=== PATIENT | female | born 1960 | race Caucasian/White ===

== ENCOUNTER 2017-04-18 00:59 | Observation (INO) | payer BC ==
[2017-04-18] MEDS ORDERED: Ketorolac 30 MG/ML SDV IVPUSH ONE (01:17)
[2017-04-18] MEDS ORDERED: Ondansetron 4 MG/2 ML SDV IVPUSH STA (01:19)
--- NOTE | 2017-04-18 01:26 | EDM.PDOC ---
ED HPI GENERAL MEDICAL PROBLEM - General Chief Complaint: Abdominal Pain Stated Complaint: abd pain, headache Time Seen by Provider: 04/18/17 01:00 Source of Information: Reports: Patient History Limitations: Reports: No Limitations - History of Present Illness INITIAL COMMENTS - FREE TEXT/NARRATIVE: Patient is a 56 year old female who presents to the ER with complaints of abdominal pain and a migraine headache. She reports that she has been experiencing abdominal pain for the past few months, with alternating constipation and diarrhea. She reports she had an abdomen/pelvis CT scan today after being seen in the clinic last week. She rates her abdominal pain a 7/10. Does report she feels nauseated. Reports she took zofran at home around 1700. Has not tried anything else at home prior to ER presentation. Does report she had a negative ColoGuard last year. She reports her last bowel movement to have been this evening and it was loose. Denies any blood in her stool or black stools. Denies any ETOH use. Denies any vomiting. Additionally, she complains of a frontal headache. She reports a history of migraines and reports this is similar to headaches in the past. Denies any confusion, dizziness, lightheadedness, LOC, numbness, tingling, weakness. Denies any fever or chills. She reports she came to the ER because she just couldn't get comfortable at home due to the pain. She reports she did not try any home pain medications prior to coming in to ER. Onset: Today Onset Date: 04/18/17 Onset Time: 16:00 Duration: Constant Location: Reports: Head (throbbing migraine, frontal, typical features of previous migraine), Abdomen (umbilical/epigastric) Quality: Reports: Ache, Throbbing Improves with: Reports: None Worsens with: Reports: None Associated Symptoms: Reports: Headaches, Loss of Appetite, Nausea/Vomiting. Denies: Confusion, Chest Pain, Cough, cough w sputum, Diaphoresis, Fever/Chills , Malaise, Rash, Seizure, Shortness of Breath, Syncope, Weakness Treatments [employer]: Reports: Other Medication(s) (zofran at 1700). Denies: Home Treatments Abdominal Pain Score (Numeric/FACES): 7 Headache Pain Score (Numeric/FACES): 10 - Related Data Allergies Allergy/AdvReac Type Severity Reaction Status Date / Time acetaminophen [From Percocet] AdvReac Dizziness Verified 04/18/17 08:42 oxycodone HCl [From Percocet] AdvReac Dizziness Verified 04/18/17 08:42 Home Meds: Home Meds Zolpidem [Ambien] 10 mg PO BEDTIME 01/07/14 [History] Ondansetron [Zofran] 4 - 8 mg PO Q6H PRN 04/23/14 [History] Cyclobenzaprine [Flexeril] 10 mg PO TID PRN 11/06/14 [History] Past Medical History Other HEENT History: [place] Cardiovascular History: Reports: Hypertension Neurological History: Reports: Migraines - Past Surgical History Female Surgical History: Reports: Hysterectomy, Tubal Ligation Social & Family History - Family History Family Medical History: Noncontributory - Tobacco Use Smoking Status *Q: Former Smoker Years of Tobacco use: 1 - Alcohol Use Days Per Week of Alcohol Use: 0 - Recreational Drug Use Recreational Drug Use: No ED ROS GENERAL - Review of Systems Review Of Systems: See Below Constitutional: Denies: Fever, Chills, Weakness, Fatigue Respiratory: Reports: No Symptoms. Denies: Shortness of Breath, Cough Cardiovascular: Reports: No Symptoms. Denies: Chest Pain GI/Abdominal: Reports: Abdominal Pain (umbilical/epigastric), Diarrhea, Decreased Appetite, Flatus, Nausea. Denies: Black Stool, Bloody Stool, Constipation, Distension, Hematemesis, Hematochezia, Melena, Vomiting : Reports: No Symptoms Musculoskeletal: Reports: No Symptoms Skin: Reports: No Symptoms Neurological: Reports: Headache (frontal, migraine with patients typical migraine features). Denies: Confusion, Dizziness, Numbness, Paresthesia, Pre- Existing Deficit, Seizure, Syncope, Tingling, Tremors, Trouble Speaking, Difficulty Walking, Weakness, Change in Speech, Gait Disturbance ED EXAM, GI/ABD - Physical Exam Exam: See Below Exam Limited By: No Limitations General Appearance: Alert, WD/WN, No Apparent Distress Eyes: Bilateral: Normal Appearance, EOMI Head: Atraumatic, Normocephalic Neck: Normal Inspection, Supple, Non-Tender, Full Range of Motion Respiratory/Chest: No Respiratory Distress, Lungs Clear, Normal Breath Sounds, No Accessory Muscle Use, Chest Non-Tender Cardiovascular: Normal Peripheral Pulses, Regular Rate, Rhythm, No Edema, No Gallop, No JVD, No Murmur, No Rub GI/Abdominal Exam: Normal Bowel Sounds, Soft, No Organomegaly, No Distention, No Abnormal Bruit, No Mass, Pelvis Stable, Tender (umbilical & epigastric region ). No: Distended, Guarding, Rigid, Rebound, Abnormal Bowel Sounds, Hepatomegaly , Splenomegaly Back Exam: Normal Inspection, Full Range of Motion. No: CVA Tenderness (L), CVA Tenderness (R) Extremities: Normal Inspection, Normal Range of Motion, Non-Tender, Normal Capillary Refill, No Pedal Edema Neurological: Alert, Oriented, CN II-XII Intact, Normal Cognition, Normal Gait, No Motor/Sensory Deficits. No: Confused Psychiatric: Normal Affect, Normal Mood Skin Exam: Warm, Dry, Intact, Normal Color, No Rash Course - Vital Signs Last Recorded V/S: Last Vital Signs Temp 98.3 F 04/19/17 07:47 Pulse 74 04/19/17 07:47 Resp 19 04/19/17 07:47 BP 148/85 H 04/19/17 07:47 Pulse Ox 97 04/19/17 07:47 - Orders/Labs/Meds Labs: Laboratory Tests 04/18/17 04/18/17 04/18/17 Range/Units 01:15 01:15 01:15 WBC 9.4 (5.0-10.0) 10^3/uL RBC 4.97 (4.00-5.50) 10^6/uL Hgb 14.2 (12.0-16.0) g/dL Hct 42.2 (37.0-47.0) % MCV 84.9 (82.0-94.0) fL MCH 28.6 (27.0-32.0) pg MCHC 33.6 (33.0-38.0) g/dL RDW Coeff of Myra 13.0 (11.0-15.0) % Plt Count 238 (150-400) 10^3/uL Add Manual Diff Yes Neutrophils % (Manual) 84 (35-85) % Band Neutrophils % 8 H (0-5) % Lymphocytes % (Manual) 4 L (21-55) % Monocytes % (Manual) 3 (2-12) % Eosinophils % (Manual) 1 (0-5) % Absolute Neutrophils 8.65 H (1.80-7.00) 10^3/uL Lymphocytes # (Manual) 0.38 L (1.00-4.80) 10^3/uL Monocytes # (Manual) 0.28 (0.00-0.80) 10^3/uL Eosinophils # (Manual) 0.09 (0.00-0.45) 10^3/uL Sodium 140 (136-145) mEq/L Potassium 3.6 (3.5-5.0) mEq/L Chloride 104 (98-106) mEq/L Carbon Dioxide 26 (21-32) mmol/L BUN 12 (7-18) mg/dL Creatinine 1.0 (0.6-1.0) mg/dL Est Cr Clr Drug Dosing 50.86 mL/min Estimated GFR (MDRD) 58 L (>=60) mL/min Glucose 140 H (75-99) mg/dL Calcium 9.2 (8.4-10.1) mg/dL Total Bilirubin 1.0 (0.0-1.0) mg/dL AST 607 H* (15-37) U/L ALT 574 H* (12-78) U/L Alkaline Phosphatase 158 H (46-116) U/L C-Reactive Protein 4.5 H (0.2-0.8) mg/dL Total Protein 7.5 (6.4-8.2) g/dL Albumin 3.6 (3.4-5.0) g/dL Amylase 18 L (25-115) U/L Urine Color (YELLOW) Urine Appearance (CLEAR) Urine pH (4.5-8.0) Ur Specific [place] (1.003-1.020) Urine Protein (NEGATIVE) mg/dL Urine Glucose (UA) (NEGATIVE) mg/dL Urine Ketones (NEGATIVE) mg/dL Urine Occult Blood (NEGATIVE) Urine Nitrite (NEGATIVE) Urine Bilirubin (NEGATIVE) Urine Urobilinogen (0.2-1.0) EU/dL Ur Leukocyte Esterase (NEGATIVE) Urine RBC (0-5) /HPF Urine WBC (0-5) /HPF Ur Squamous Epith Cells (NOT SEEN) /HPF Urine Bacteria (NOT SEEN) /HPF Urine Mucus (NOT SEEN) /HPF 04/18/17 Range/Units 01:15 WBC (5.0-10.0) 10^3/uL RBC (4.00-5.50) 10^6/uL Hgb (12.0-16.0) g/dL Hct (37.0-47.0) % MCV (82.0-94.0) fL MCH (27.0-32.0) pg MCHC (33.0-38.0) g/dL RDW Coeff of Myra (11.0-15.0) % Plt Count (150-400) 10^3/uL Add Manual Diff Neutrophils % (Manual) (35-85) % Band Neutrophils % (0-5) % Lymphocytes % (Manual) (21-55) % Monocytes % (Manual) (2-12) % Eosinophils % (Manual) (0-5) % Absolute Neutrophils (1.80-7.00) 10^3/uL Lymphocytes # (Manual) (1.00-4.80) 10^3/uL Monocytes # (Manual) (0.00-0.80) 10^3/uL Eosinophils # (Manual) (0.00-0.45) 10^3/uL Sodium (136-145) mEq/L Potassium (3.5-5.0) mEq/L Chloride (98-106) mEq/L Carbon Dioxide (21-32) mmol/L BUN (7-18) mg/dL Creatinine (0.6-1.0) mg/dL Est Cr Clr Drug Dosing mL/min Estimated GFR (MDRD) (>=60) mL/min Glucose (75-99) mg/dL Calcium (8.4-10.1) mg/dL Total Bilirubin (0.0-1.0) mg/dL AST (15-37) U/L ALT (12-78) U/L Alkaline Phosphatase (46-116) U/L C-Reactive Protein (0.2-0.8) mg/dL Total Protein (6.4-8.2) g/dL Albumin (3.4-5.0) g/dL Amylase (25-115) U/L Urine Color Yellow (YELLOW) Urine Appearance Slightly cloudy (CLEAR) Urine pH 5.5 (4.5-8.0) Ur Specific [place] 1.015 (1.003-1.020) Urine Protein Trace H (NEGATIVE) mg/dL Urine Glucose (UA) Negative (NEGATIVE) mg/dL Urine Ketones 15 H (NEGATIVE) mg/dL Urine Occult Blood Trace-intact H (NEGATIVE) Urine Nitrite Negative (NEGATIVE) Urine Bilirubin Small H (NEGATIVE) Urine Urobilinogen 0.2 (0.2-1.0) EU/dL Ur Leukocyte Esterase Negative (NEGATIVE) Urine RBC 5-10 H (0-5) /HPF Urine WBC Not seen (0-5) /HPF Ur Squamous Epith Cells Few H (NOT SEEN) /HPF Urine Bacteria Few H (NOT SEEN) /HPF Urine Mucus Few H (NOT SEEN) /HPF Meds: Medications Discontinued Medications Generic Name Dose Route Start Last Admin Trade Name Freq PRN Reason Stop Dose Admin Cyclobenzaprine HCl 10 mg 04/18/17 02:38 Flexeril PO TID PRN Other Docusate Sodium 100 mg 04/18/17 02:38 Colace PO BID PRN Constipation Fentanyl 25 mcg 04/18/17 12:13 Sublimaze IVPUSH Q2H PRN Pain (severe 7-10) Hydromorphone HCl 0.5 mg 04/18/17 02:38 04/18/17 06:27 Dilaudid IVPUSH 0.5 mg Q2H PRN Administration Pain (severe 7-10) Sodium Chloride 500 mls @ 999 mls/hr 04/18/17 01:30 04/18/17 01:43 Normal Saline IV 999 mls/hr .BOLUS ALEE Administration Sodium Chloride 1,000 mls @ 75 mls/hr 04/18/17 02:38 04/18/17 18:17 Normal Saline IV 75 mls/hr ASDIRECTED ALEE Administration Promethazine HCl 6.25 mg/ 50.25 mls @ 100 mls/hr 04/18/17 02:38 04/18/17 08: 27 Sodium Chloride IV 100 mls/hr Q6H PRN Administration Nausea/Vomiting Levofloxacin/Dextrose 500 mg/ 100 mls @ 100 mls/hr 04/18/17 03:00 04/18/17 03 :03 Premix IV 100 mls/hr Q24H ALEE Administration Metronidazole 500 mg/ Premix 100 mls @ 100 mls/hr 04/18/17 03:00 04/18/17 03: 00 IV 100 mls/hr Q8H ALEE Administration Metronidazole 500 mg/ Premix 100 mls @ 100 mls/hr 04/18/17 16:00 IV Q8H ALEE Levofloxacin/Dextrose 500 mg/ 100 mls @ 100 mls/hr 04/19/17 09:00 Premix IV Q24H ALEE Ketorolac Tromethamine 30 mg 04/18/17 01:17 04/18/17 01:42 Toradol IVPUSH 04/18/17 01:18 30 mg ONETIME ONE Administration Ondansetron HCl 4 mg 04/18/17 01:19 04/18/17 01:43 Zofran IVPUSH 04/18/17 01:20 4 mg STAT STA Administration Ondansetron HCl Confirm 04/18/17 01:27 04/18/17 01:47 Zofran Administered 04/18/17 01:28 Not Given Dose 4 mg .ROUTE .STK-MED ONE Oxycodone HCl 5 mg 04/18/17 02:38 04/19/17 07:47 Oxycodone PO 5 mg Q4H PRN Administration Pain Pantoprazole Sodium 40 mg 04/18/17 08:00 04/19/17 07:40 Protonix Iv IVPUSH 40 mg Q24H ALEE Administration Zolpidem Tartrate 10 mg 04/18/17 20:00 04/18/17 19:50 Ambien PO 10 mg BEDTIME ALEE Administration - Re-Assessments/Exams Free Text/Narrative Re-Assessment/Exam: 04/18/17 02:04 Discussed lab results with patient. Liver enzymes critically elevated, ALT 574 & AST 607. Liver enzymes were not elevated on lab work done 04/10/2017. CT of abdomen done around 0930 yesterday morning suggest fatty liver disease. Patient has had a cholecystectomy. CT did not show any common bile duct dilation. Was negative for any other acute findings. Headache improved with medications. I will admit this patient to observation under Dr. Shah to recheck labs in morning, given band neutrophils, elevated CRP, and acutely elevated liver enzymes. No obvious hepatotoxic medications on patient's med list. Will start IV antibiotics Levaquin and Flagyl, as well as IVF. Will recheck labs in am and discuss case with Dr. Shah regarding further workup of elevated liver enzymes. Departure - Departure Time of Disposition: 02:09 Disposition: Refer to Observation Clinical Impression: Elevated liver enzymes, Epigastric abdominal pain of unknown etiology Migraine Qualifiers: Migraine type: without aura Status migrainosus presence: without status migrainosus Intractability: not intractable Qualified Code(s): G43.009 - Migraine without aura, not intractable, without status migrainosus - Discharge Information - Problem List & Annotations (1) Elevated liver enzymes SNOMED Code(s): 722304464 Code(s): R74.8 - ABNORMAL LEVELS OF OTHER SERUM ENZYMES Status: Acute Priority: High (2) Epigastric abdominal pain of unknown etiology SNOMED Code(s): 715285771 Code(s): R10.13 - EPIGASTRIC PAIN Status: Acute (3) Migraine SNOMED Code(s): 09134419 Code(s): G43.909 - MIGRAINE, UNSP, NOT INTRACTABLE, WITHOUT STATUS MIGRAINOSUS Status: Acute Qualifiers: Migraine type: without aura Status migrainosus presence: without status migrainosus Intractability: not intractable Qualified Code(s): G43.009 - Migraine without aura, not intractable, without status migrainosus (4) Abnormal neutrophil count SNOMED Code(s): 337008911 Code(s): R79.9 - ABNORMAL FINDING OF BLOOD CHEMISTRY, UNSPECIFIED Status: Acute - Problem List Review Problem List Initiated/Reviewed/Updated: Yes - Assessment/Plan Admission H&P: Please use this note as an admission H&P
[2017-04-18] MEDS ORDERED: Ondansetron 4 MG/2 ML SDV ONE (01:27)
[2017-04-18] MEDS ORDERED: Sodium Chloride 0.9% 500 ML IV SCH (01:30)
[2017-04-18] MEDS ORDERED: Docusate Sodium 100 MG Cap PO PRN (02:38)
[2017-04-18] MEDS ORDERED: HYDROmorphone 1 MG/ML Syringe IVPUSH PRN (02:38)
[2017-04-18] MEDS ORDERED: Promethazine 6.25 MG in Sodium Chloride 0.9% 50 ML IV PRN (02:38)
[2017-04-18] MEDS ORDERED: Cyclobenzaprine 10 MG Tab PO PRN (02:38)
[2017-04-18] MEDS: Sodium Chloride 0.9% 1,000 ML IV SCH ×2 (03:00→18:17)
[2017-04-18] MEDS ORDERED: Levofloxacin/Dextrose 5%-Water 500 MG in Premix Bag 1 BAG IV SCH (03:00)
[2017-04-18] MEDS ORDERED: metroNIDAZOLE/Normal Saline 500 MG in Premix Bag 1 BAG IV SCH ×2 (03:00→16:00)
[2017-04-18 07:33] LABS: CHLORIDE,CL 106 mEq/L (98-106); SODIUM,NA 141 mEq/L (136-145)
[2017-04-18] MEDS: Pantoprazole 40 MG Vial IVPUSH SCH (11:48)
[2017-04-18] MEDS ORDERED: fentaNYL 100 MCG/2 ML SDV IVPUSH PRN (12:13)
--- NOTE | 2017-04-18 12:35 | PN ---
DATE: 04/18/2017 S: Mrs. Stover is a 56-year-old female with a history of some chronic abdominal pain. She presented to the emergency room with about a 7-day history of abdominal discomfort, some alternating episodes of diarrhea, constipation, and nausea. Workup surprisingly showed an acute hepatitis with marked elevation of her AST and ALT. She had minimal elevation of her alkaline phosphatase to 138 and her bilirubin was normal. Since she has been admitted, she has been afebrile. Her vitals have been fine. She clinically looks well. She does not complain of significant pain at this time. O: HEENT: Grossly benign. No Raghav-Jo Ann rings. NECK: Supple. LUNGS: Clear. CARDIAC: Tones are regular. ABDOMEN: actually quite soft. Deep palpation in the right upper quadrant and midepigastrium really do not give her much discomfort. She certainly has no guarding, rebound, rigidity, or obvious mass. Good bowel sounds are noted. EXTREMITIES: Without edema. ASSESSMENT: ACUTE HEPATITIS. P: We will get a hepatitis panel on her. I will get serum antibodies for autoimmune hepatitis and biliary cholangitis. We will get an anti-smooth muscle antibody, ALEJA, and antimitochondrial antibody as well, and she will be scheduled for right upper quadrant ultrasound. For now, continue IV fluids, pain control, and we will start her on IV Protonix. KONG/RUSH /[id number]
[2017-04-18] MEDS: oxyCODONE 5 MG Tab PO PRN ×2 (15:34→19:52)
[2017-04-18] MEDS ORDERED: Zolpidem 5 MG Tab PO SCH (20:00)
[2017-04-19] MEDS: Pantoprazole 40 MG Vial IVPUSH SCH (07:40)
[2017-04-19] MEDS: oxyCODONE 5 MG Tab PO PRN (07:47)
[2017-04-19 07:48] VITALS: BP 148/85
--- NOTE | 2017-04-19 08:33 | PCM.SN ---
- Free Text/Narrative Note: There have been no labs ordered for today. I have ordered the labs and will patient after lab results.
[2017-04-19 08:59] LABS: CHLORIDE,CL 107 mEq/L (98-106); SODIUM,NA 142 mEq/L (136-145)
[2017-04-19] MEDS ORDERED: Levofloxacin/Dextrose 5%-Water 500 MG in Premix Bag 1 BAG IV SCH (09:00)
--- NOTE | 2017-04-19 09:07 | PCM.DCSUM1 ---
Discharge Summary - Hospital Course HPI Initial Comments: This patient was admitted to the hospital from the ER for abdominal pain and elevated liver enzymes. The patient reports that today her abdominal pain is much improved. She reports that she has been able to eat and drink without difficulty since last night. Today, when I see the patient, she is in the bed eating breakfast without any trouble. Patient reports that she is ready to go home today. The patient is alert and oriented. She does not appear to be in any acute distress. Patient denies otero, dizziness, n, v, d, f, abd pain, urinary/ bowel changes. Yesterday her AST was 394, today is 152. Yesterday her ALT was 518, today it is 398. Will discharge. - Discharge Data Discharge Date: 04/19/17 Discharge Disposition: Home, Self-Care 01 Condition: Good - Patient Summary/Data Labs Pending at D/C: Hepatitis Panel. Send out. Recommended Follow-up Testing/Procedures: Followup with your primary care provider on Friday or Friday. - Patient Instructions Diet: Usual Diet as Tolerated (If tolerating well. If not, clear liquid diet and advance as tolerated. ) Activity: As Tolerated Showering/Bathing: September Shower Notify Provider of: Fever, Increased Pain, Nausea and/or Vomiting - Discharge Plan Home Medications: Home Meds Zolpidem [Ambien] 10 mg PO BEDTIME 01/07/14 [History] Ondansetron [Zofran] 4 - 8 mg PO Q6H PRN 04/23/14 [History] Cyclobenzaprine [Flexeril] 10 mg PO TID PRN 11/06/14 [History] Patient Handouts: Liver Function Tests, Hepatomegaly, [id number] Forms: ED Department Discharge Referrals: Collin Shen PA-C [Family Provider] - - Discharge Summary/Plan Comment DC Time >30 min.: No Discharge Summary/Plan Comment: Followup with your primary care provider Return to the ER for worsening of condition or any emergent concerns Diet as tolerated - General Info Date of Service: 04/19/17 Functional Status: Reports: Pain Controlled, Tolerating Diet - Review of Systems General: Reports: No Symptoms HEENT: Reports: No Symptoms Pulmonary: Reports: No Symptoms Cardiovascular: Reports: No Symptoms Gastrointestinal: Reports: Abdominal Pain (mild, but significantly improved. ). Denies: Diarrhea, Nausea, Vomiting Genitourinary: Reports: No Symptoms Musculoskeletal: Reports: No Symptoms Skin: Reports: No Symptoms Neurological: Reports: No Symptoms Psychiatric: Reports: No Symptoms - Patient Data Vitals - Most Recent: Last Vital Signs Temp 98.3 F 04/19/17 07:47 Pulse 74 04/19/17 07:47 Resp 19 04/19/17 07:47 BP 148/85 H 04/19/17 07:47 Pulse Ox 97 04/19/17 07:47 Weight - Most Recent: 201 lb 6.4 oz I&O - Last 24 hours: Intake & Output 04/18/17 04/19/17 04/19/17 22:59 06:59 14:59 Intake Total 1000 Balance 1000 Lab Results - Last 24 hrs: Laboratory Results - last 24 hr 04/19/17 Range/Units 08:35 WBC 4.8 L (5.0-10.0) 10^3/uL RBC 4.71 (4.00-5.50) 10^6/uL Hgb 13.5 (12.0-16.0) g/dL Hct 40.5 (37.0-47.0) % MCV 86.0 (82.0-94.0) fL MCH 28.7 (27.0-32.0) pg MCHC 33.3 (33.0-38.0) g/dL RDW Coeff of Myra 13.0 (11.0-15.0) % Plt Count 201 (150-400) 10^3/uL Neut % (Auto) 59.7 (35-85) % Lymph % (Auto) 26.5 (10-55) % [place] % (Auto) 6.3 (0-16) % Eos % (Auto) 6.9 H (0-5) % Baso % (Auto) 0.6 (0-3) % Neut # (Auto) 2.84 (1.80-7.00) 10^3/uL Lymph # (Auto) 1.26 (1.00-4.80) 10^3/uL [place] # (Auto) 0.30 (0.00-0.80) 10^3/uL Eos # (Auto) 0.33 (0.00-0.45) 10^3/uL Baso # (Auto) 0.03 10^3/uL Med Orders - Current: Current Medications Cyclobenzaprine HCl (Flexeril) 10 mg PO TID PRN PRN Reason: Other Docusate Sodium (Colace) 100 mg PO BID PRN PRN Reason: Constipation Fentanyl (Sublimaze) 25 mcg IVPUSH Q2H PRN PRN Reason: Pain (severe 7-10) Sodium Chloride (Normal Saline) 1,000 mls @ 75 mls/hr IV ASDIRECTED [facility] Last Admin: 04/18/17 18:17 Dose: 75 mls/hr Promethazine HCl 6.25 mg/ (Sodium Chloride) 50.25 mls @ 100 mls/hr IV Q6H PRN PRN Reason: Nausea/Vomiting Last Admin: 04/18/17 08:27 Dose: 100 mls/hr Oxycodone HCl (Oxycodone) 5 mg PO Q4H PRN PRN Reason: Pain Last Admin: 04/19/17 07:47 Dose: 5 mg Pantoprazole Sodium (Protonix Iv) 40 mg IVPUSH Q24H [facility] Last Admin: 04/19/17 07:40 Dose: 40 mg Zolpidem Tartrate (Ambien) 10 mg PO BEDTIME [facility] Last Admin: 04/18/17 19:50 Dose: 10 mg Discontinued Medications Hydromorphone HCl (Dilaudid) 0.5 mg IVPUSH Q2H PRN PRN Reason: Pain (severe 7-10) Last Admin: 04/18/17 06:27 Dose: 0.5 mg Sodium Chloride (Normal Saline) 500 mls @ 999 mls/hr IV .BOLUS [facility] Last Admin: 04/18/17 01:43 Dose: 999 mls/hr Levofloxacin/Dextrose 500 mg/ (Premix) 100 mls @ 100 mls/hr IV Q24H [facility] Last Admin: 04/18/17 03:03 Dose: 100 mls/hr Metronidazole 500 mg/ Premix 100 mls @ 100 mls/hr IV Q8H [facility] Last Admin: 04/18/17 03:00 Dose: 100 mls/hr Metronidazole 500 mg/ Premix 100 mls @ 100 mls/hr IV Q8H [facility] Levofloxacin/Dextrose 500 mg/ (Premix) 100 mls @ 100 mls/hr IV Q24H [facility] Ketorolac Tromethamine (Toradol) 30 mg IVPUSH ONETIME ONE Stop: 04/18/17 01:18 Last Admin: 04/18/17 01:42 Dose: 30 mg Ondansetron HCl (Zofran) 4 mg IVPUSH STAT STA Stop: 04/18/17 01:20 Last Admin: 04/18/17 01:43 Dose: 4 mg Ondansetron HCl (Zofran) Confirm Administered Dose 4 mg .ROUTE .STK-MED ONE Stop: 04/18/17 01:28 Last Admin: 04/18/17 01:47 Dose: Not Given - Exam General: Reports: Alert, Oriented, Cooperative, No Acute Distress Lungs: Reports: Clear to Auscultation, Normal Respiratory Effort Cardiovascular: Reports: Regular Rate, Regular Rhythm, No Murmurs GI/Abdominal Exam: Normal Bowel Sounds, Soft, Non-Tender, No Organomegaly (not felt on exam. ), No Distention, No Abnormal Bruit, No Mass, Pelvis Stable Back Exam: Reports: Normal Inspection, Full Range of Motion. Denies: CVA Tenderness (L), CVA Tenderness (R) Extremities: Normal Inspection, Normal Range of Motion, Non-Tender, No Pedal Edema, Normal Capillary Refill Skin: Reports: Warm, Dry, Intact Neurological: Reports: No New Focal Deficit Psy/Mental Status: Reports: Alert, Normal Affect, Normal Mood *Q Meaningful Use (DIS) - VTE *Q VTE Criteria *Q: - Stroke *Q Stroke Criteria *Q: - AMI *Q AMI Criteria *Q:
== END 2017-04-19 13:07 | disposition home or self-care (01) ==
LOC: CC.ED 00:59 → CC.MS 02:25
PROVIDERS: ADMIT Nurse Practitioner Family; ATTEND Family Medicine
DX: B17.9 Acute viral hepatitis, unspecified (principal); I10 Essential (primary) hypertension; G43.909 Migraine, unspecified, not intractable, without status migrainosus; F17.200 Nicotine dependence, unspecified, uncomplicated; Z79.899 Other long term (current) drug therapy; Z90.710 Acquired absence of both cervix and uterus; Z98.51 Tubal ligation status
CPT/HCPCS: 36415; 76705; 80053; 80074; 81001; 82150; 85025; 86038; 86140; 86255; 86376; 96361; 96365; 96367; 96375; 96376; 99284; A9270; C9113; G0378; J1170; J1885; J1956; J2405; J2550; J7030; J7040; J7050

== ENCOUNTER 2017-04-29 14:04 | Inpatient (IN) | payer BC ==
[2017-04-29 14:33] LABS: CHLORIDE,CL 98 mEq/L (98-106); SODIUM,NA 136 mEq/L (136-145)
[2017-04-29] MEDS ORDERED: Ondansetron 4 MG/2 ML SDV IV PRN (16:15)
[2017-04-29] MEDS: Sodium Chloride 0.9% 1,000 ML IV SCH (16:35)
[2017-04-29] MEDS: Ondansetron 8 MG in Sodium Chloride 0.9% 50 ML IV PRN (16:36)
[2017-04-29] MEDS ORDERED: Sodium Chloride 0.9% 50 ML ONE (16:45)
[2017-04-29] MEDS ORDERED: fentaNYL 100 MCG/2 ML SDV IVPUSH PRN ×2 (17:50→19:26)
[2017-04-29] MEDS: Ibuprofen 200 MG Tab PO PRN (19:54)
[2017-04-29] MEDS: fentaNYL 100 MCG/2 ML SDV IVPUSH PRN (19:55)
[2017-04-29] MEDS: Temazepam 15 MG Cap PO PRN (21:30)
[2017-04-30] MEDS: Sodium Chloride 0.9% 1,000 ML IV SCH ×3 (01:11→17:58)
[2017-04-30] MEDS: Ibuprofen 200 MG Tab PO PRN ×2 (01:15→17:29)
[2017-04-30] MEDS: fentaNYL 100 MCG/2 ML SDV IVPUSH PRN ×2 (06:27→13:40)
[2017-04-30] MEDS ORDERED: Ketorolac 30 MG/ML SDV IVPUSH ONE (09:00)
--- NOTE | 2017-04-30 15:20 | PCM.PN ---
- General Info Date of Service: 04/30/17 Functional Status: Reports: Pain Controlled, Tolerating Diet. Denies: Ambulating - Review of Systems General: Reports: Fever, Fatigue. Denies: Weakness HEENT: Reports: Headaches Pulmonary: Denies: Shortness of Breath, Cough, Sputum Cardiovascular: Denies: Chest Pain, Edema, Lightheadedness Gastrointestinal: Reports: Abdominal Pain (does admit that the pain is much improved after injection early this am for discomfort). Denies: Nausea, Vomiting Genitourinary: Reports: No Symptoms Musculoskeletal: Reports: No Symptoms Neurological: Reports: Headache - Patient Data Vitals - Most Recent: Last Vital Signs Temp 98.5 F 04/30/17 12:00 Pulse 78 04/30/17 12:00 Resp 16 04/30/17 12:00 BP 134/72 04/30/17 12:00 Pulse Ox 97 04/30/17 12:00 Weight - Most Recent: 195 lb 14.4 oz I&O - Last 24 Hours: Intake & Output 04/30/17 04/30/17 04/30/17 06:59 14:59 22:59 Intake Total 1500 1000 Balance 1500 1000 Lab Results Last 24 Hours: Laboratory Results - last 24 hr 04/30/17 04/30/17 Range/Units 09:10 09:10 WBC 3.0 L (5.0-10.0) 10^3/uL RBC 4.49 (4.00-5.50) 10^6/uL Hgb 12.8 (12.0-16.0) g/dL Hct 38.8 (37.0-47.0) % MCV 86.4 (82.0-94.0) fL MCH 28.5 (27.0-32.0) pg MCHC 33.0 (33.0-38.0) g/dL RDW Coeff of Myra 12.8 (11.0-15.0) % Plt Count 167 (150-400) 10^3/uL Neut % (Auto) 57.6 (35-85) % Lymph % (Auto) 21.9 (10-55) % [place] % (Auto) 19.2 H (0-16) % Eos % (Auto) 0.3 (0-5) % Baso % (Auto) 1.0 (0-3) % Neut # (Auto) 1.71 L (1.80-7.00) 10^3/uL Lymph # (Auto) 0.65 L (1.00-4.80) 10^3/uL Daniels # (Auto) 0.57 (0.00-0.80) 10^3/uL Eos # (Auto) 0.01 (0.00-0.45) 10^3/uL Baso # (Auto) 0.03 10^3/uL Sodium 141 (136-145) mEq/L Potassium 3.6 (3.5-5.0) mEq/L Chloride 106 (98-106) mEq/L Carbon Dioxide 26 (21-32) mmol/L BUN 16 (7-18) mg/dL Creatinine 1.0 (0.6-1.0) mg/dL Est Cr Clr Drug Dosing 50.86 mL/min Estimated GFR (MDRD) 58 L (>=60) mL/min Glucose 98 (75-99) mg/dL Calcium 8.4 (8.4-10.1) mg/dL Total Bilirubin 0.6 (0.0-1.0) mg/dL AST 22 (15-37) U/L ALT 47 (12-78) U/L Alkaline Phosphatase 78 (46-116) U/L C-Reactive Protein 2.0 H (0.2-0.8) mg/dL Total Protein 6.7 (6.4-8.2) g/dL Albumin 3.2 L (3.4-5.0) g/dL Michele Results Last 24 Hours: Microbiology 04/29/17 19:35 Influenza Type A Antigen Screen - Final Nasal, Unspecified NEGATIVE INFLUENZA A VIRUS AG Influenza Type B Antigen Screen - Final NEGATIVE INFLUENZA B VIRUS AG Med Orders - Current: Current Medications Fentanyl (Sublimaze) 25 - 50 mcg IVPUSH Q2H PRN PRN Reason: Abdominal Pain Last Admin: 04/30/17 13:40 Dose: 25 mcg Sodium Chloride (Normal Saline) 1,000 mls @ 125 mls/hr IV ASDIRECTED ALEE Last Admin: 04/30/17 09:20 Dose: 125 mls/hr Ondansetron HCl 8 mg/ Sodium (Chloride) 54 mls @ 100 mls/hr IV Q6H PRN PRN Reason: NAUSEA Last Admin: 04/29/17 16:36 Dose: 100 mls/hr Ibuprofen (Motrin) 400 mg PO Q6H PRN PRN Reason: Fever Last Admin: 04/30/17 01:15 Dose: 400 mg Temazepam (Restoril) 15 mg PO BEDTIME PRN PRN Reason: Sleep Last Admin: 04/29/17 21:30 Dose: 15 mg Discontinued Medications Fentanyl (Sublimaze) 25 mcg IVPUSH Q4H PRN PRN Reason: Abdominal Pain Last Admin: 04/29/17 18:06 Dose: 25 mcg Fentanyl (Sublimaze) 25 - 50 mcg IVPUSH Q4H PRN PRN Reason: Abdominal Pain Sodium Chloride (Normal Saline) Confirm Administered Dose 50 mls @ as directed .ROUTE .STK-MED ONE Stop: 04/29/17 16:46 Last Admin: 04/29/17 16:40 Dose: Not Given Ketorolac Tromethamine (Toradol) 30 mg IVPUSH ONETIME ONE Stop: 04/30/17 09:01 Last Admin: 04/30/17 09:21 Dose: 30 mg Ondansetron HCl (Zofran) 8 mg IV Q6H PRN PRN Reason: Nausea/Vomiting - Exam General: Alert, Oriented HEENT: Mucous Membr. Moist/[place] Neck: Supple Lungs: Clear to Auscultation, Normal Respiratory Effort Cardiovascular: Regular Rate, Regular Rhythm GI/Abdominal Exam: Normal Bowel Sounds, Soft, Non-Tender Extremities: Normal Inspection, No Pedal Edema Skin: Warm, Dry Neurological: No New Focal Deficit - Problem List & Annotations (1) Epigastric abdominal pain of unknown etiology SNOMED Code(s): 460640914 Code(s): R10.13 - EPIGASTRIC PAIN Status: Acute Current Visit: No (2) Migraine SNOMED Code(s): 27663345 Code(s): G43.909 - MIGRAINE, UNSP, NOT INTRACTABLE, WITHOUT STATUS MIGRAINOSUS Status: Acute Priority: High Current Visit: No - Problem List Review Problem List Initiated/Reviewed/Updated: Yes - My Orders Last 24 Hours: My Active Orders 04/30/17 Lunch Soft Diet [DIET] - Assessment Assessment:: Abdominal Pain Migraine - Plan Plan:: Patient's abdominal discomfort much improved. Does admit that the injection she got around 530 am has really helped. She does have a migraine headache right now, ibuprofen has not helped. Patient is voiding without difficulty. NO nausea this am. Tolerating liquids. Had fever last evening, afebrile this am. Blood pressure much improved today. CBC notes WBC from 7.8 yesterday to 3.0 today, CRP 1.1 increased to 2. Liver enzymes all normal now. Influenza screening negative. Will continue with IV fluids. Advance diet. Encourage ambulation. As patient has long-standing history of abdominal pain, will arrange for GI consult as all testing here up to this point over the last few months has been negative.
[2017-04-30] MEDS: Ondansetron 8 MG in Sodium Chloride 0.9% 50 ML IV PRN (16:35)
[2017-04-30] MEDS: traMADol 50 MG Tab PO PRN ×2 (16:35→19:51)
[2017-04-30] MEDS: Temazepam 15 MG Cap PO PRN (21:49)
[2017-05-01] MEDS: traMADol 50 MG Tab PO PRN ×2 (02:00→07:45)
[2017-05-01] MEDS: Sodium Chloride 0.9% 1,000 ML IV SCH ×4 (02:01→21:33)
[2017-05-01] MEDS: Ondansetron 8 MG in Sodium Chloride 0.9% 50 ML IV PRN ×2 (07:22→13:49)
--- NOTE | 2017-05-01 09:17 | PCM.PN ---
- General Info Date of Service: 05/01/17 Admission Dx/Problem (Free Text): Abdominal Pain Functional Status: Reports: Ambulating, Urinating. Denies: Pain Controlled, Tolerating Diet - Review of Systems General: Reports: Fever, Malaise HEENT: Reports: No Symptoms Pulmonary: Denies: Shortness of Breath, Cough Cardiovascular: Denies: Chest Pain, Edema, Lightheadedness Gastrointestinal: Reports: Abdominal Pain, Decreased Appetite, Diarrhea, Nausea. Denies: Vomiting Genitourinary: Reports: No Symptoms Musculoskeletal: Reports: No Symptoms Skin: Reports: No Symptoms Neurological: Reports: No Symptoms - Patient Data Vitals - Most Recent: Last Vital Signs Temp 97.8 F 05/01/17 07:51 Pulse 67 05/01/17 07:51 Resp 19 05/01/17 07:51 BP 120/63 05/01/17 07:51 Pulse Ox 95 05/01/17 07:51 Weight - Most Recent: 203 lb 11.2 oz I&O - Last 24 Hours: Intake & Output 04/30/17 05/01/17 05/01/17 22:59 06:59 14:59 Intake Total 1800 1300 Output Total 400 Balance 1800 900 Lab Results Last 24 Hours: Laboratory Results - last 24 hr 04/30/17 04/30/17 05/01/17 Range/Units 09:10 09:10 07:22 WBC 3.0 L 3.1 L (5.0-10.0) 10^3/uL RBC 4.49 4.16 (4.00-5.50) 10^6/uL Hgb 12.8 11.9 L (12.0-16.0) g/dL Hct 38.8 36.7 L (37.0-47.0) % MCV 86.4 88.2 (82.0-94.0) fL MCH 28.5 28.6 (27.0-32.0) pg MCHC 33.0 32.4 L (33.0-38.0) g/dL RDW Coeff of Myra 12.8 13.0 (11.0-15.0) % Plt Count 167 146 L (150-400) 10^3/uL Neut % (Auto) 57.6 54.6 (35-85) % Lymph % (Auto) 21.9 30.9 (10-55) % [place] % (Auto) 19.2 H 12.9 (0-16) % Eos % (Auto) 0.3 0.6 (0-5) % Baso % (Auto) 1.0 1.0 (0-3) % Neut # (Auto) 1.71 L 1.70 L (1.80-7.00) 10^3/uL Lymph # (Auto) 0.65 L 0.96 L (1.00-4.80) 10^3/uL [place] # (Auto) 0.57 0.40 (0.00-0.80) 10^3/uL Eos # (Auto) 0.01 0.02 (0.00-0.45) 10^3/uL Baso # (Auto) 0.03 0.03 10^3/uL Sodium 141 (136-145) mEq/L Potassium 3.6 (3.5-5.0) mEq/L Chloride 106 (98-106) mEq/L Carbon Dioxide 26 (21-32) mmol/L BUN 16 (7-18) mg/dL Creatinine 1.0 (0.6-1.0) mg/dL Est Cr Clr Drug Dosing 50.86 mL/min Estimated GFR (MDRD) 58 L (>=60) mL/min Glucose 98 (75-99) mg/dL Calcium 8.4 (8.4-10.1) mg/dL Total Bilirubin 0.6 (0.0-1.0) mg/dL AST 22 (15-37) U/L ALT 47 (12-78) U/L Alkaline Phosphatase 78 (46-116) U/L C-Reactive Protein 2.0 H (0.2-0.8) mg/dL Total Protein 6.7 (6.4-8.2) g/dL Albumin 3.2 L (3.4-5.0) g/dL 05/01/17 Range/Units 07:22 WBC (5.0-10.0) 10^3/uL RBC (4.00-5.50) 10^6/uL Hgb (12.0-16.0) g/dL Hct (37.0-47.0) % MCV (82.0-94.0) fL MCH (27.0-32.0) pg MCHC (33.0-38.0) g/dL RDW Coeff of Myra (11.0-15.0) % Plt Count (150-400) 10^3/uL Neut % (Auto) (35-85) % Lymph % (Auto) (10-55) % [place] % (Auto) (0-16) % Eos % (Auto) (0-5) % Baso % (Auto) (0-3) % Neut # (Auto) (1.80-7.00) 10^3/uL Lymph # (Auto) (1.00-4.80) 10^3/uL [place] # (Auto) (0.00-0.80) 10^3/uL Eos # (Auto) (0.00-0.45) 10^3/uL Baso # (Auto) 10^3/uL Sodium (136-145) mEq/L Potassium (3.5-5.0) mEq/L Chloride (98-106) mEq/L Carbon Dioxide (21-32) mmol/L BUN (7-18) mg/dL Creatinine (0.6-1.0) mg/dL Est Cr Clr Drug Dosing mL/min Estimated GFR (MDRD) (>=60) mL/min Glucose (75-99) mg/dL Calcium (8.4-10.1) mg/dL Total Bilirubin (0.0-1.0) mg/dL AST (15-37) U/L ALT (12-78) U/L Alkaline Phosphatase (46-116) U/L C-Reactive Protein 1.7 H (0.2-0.8) mg/dL Total Protein (6.4-8.2) g/dL Albumin (3.4-5.0) g/dL Michele Results Last 24 Hours: Microbiology 04/29/17 16:25 Aerobic Blood Culture - Preliminary Blood - Venous - Lab Draw NO GROWTH AFTER 1 DAY Anaerobic Blood Culture - Preliminary NO GROWTH AFTER 1 DAY 04/29/17 16:20 Aerobic Blood Culture - Preliminary Blood - Venous NO GROWTH AFTER 1 DAY Anaerobic Blood Culture - Preliminary NO GROWTH AFTER 1 DAY Med Orders - Current: Current Medications Fentanyl (Sublimaze) 25 - 50 mcg IVPUSH Q2H PRN PRN Reason: Abdominal Pain Last Admin: 04/30/17 13:40 Dose: 25 mcg Sodium Chloride (Normal Saline) 1,000 mls @ 125 mls/hr IV ASDIRECTED ALEE Last Admin: 05/01/17 02:01 Dose: 125 mls/hr Ondansetron HCl 8 mg/ Sodium (Chloride) 54 mls @ 100 mls/hr IV Q6H PRN PRN Reason: NAUSEA Last Admin: 05/01/17 07:22 Dose: 100 mls/hr Ibuprofen (Motrin) 400 mg PO Q6H PRN PRN Reason: Fever Last Admin: 04/30/17 17:29 Dose: 400 mg Temazepam (Restoril) 15 mg PO BEDTIME PRN PRN Reason: Sleep Last Admin: 04/30/17 21:49 Dose: 15 mg Tramadol HCl (Ultram) 50 mg PO Q4H PRN PRN Reason: Abdominal Pain Last Admin: 05/01/17 07:45 Dose: 50 mg Discontinued Medications Fentanyl (Sublimaze) 25 mcg IVPUSH Q4H PRN PRN Reason: Abdominal Pain Last Admin: 04/29/17 18:06 Dose: 25 mcg Fentanyl (Sublimaze) 25 - 50 mcg IVPUSH Q4H PRN PRN Reason: Abdominal Pain Sodium Chloride (Normal Saline) Confirm Administered Dose 50 mls @ as directed .ROUTE .STK-MED ONE Stop: 04/29/17 16:46 Last Admin: 04/29/17 16:40 Dose: Not Given Ketorolac Tromethamine (Toradol) 30 mg IVPUSH ONETIME ONE Stop: 04/30/17 09:01 Last Admin: 04/30/17 09:21 Dose: 30 mg Ondansetron HCl (Zofran) 8 mg IV Q6H PRN PRN Reason: Nausea/Vomiting - Exam General: Alert, Oriented HEENT: Mucous Membr. Moist/[place] Neck: Supple Lungs: Clear to Auscultation, Normal Respiratory Effort Cardiovascular: Regular Rate, Regular Rhythm GI/Abdominal Exam: Normal Bowel Sounds, Soft, Tender (bilateral upper quadrants) Extremities: Normal Inspection, No Pedal Edema Skin: Warm, Dry Neurological: No New Focal Deficit Psy/Mental Status: Alert, Normal Affect, Normal Mood - Problem List & Annotations (1) Epigastric abdominal pain of unknown etiology SNOMED Code(s): 484351162 Code(s): R10.13 - EPIGASTRIC PAIN Status: Acute Priority: High Current Visit: Yes (2) Migraine SNOMED Code(s): 52119231 Code(s): G43.909 - MIGRAINE, UNSP, NOT INTRACTABLE, WITHOUT STATUS MIGRAINOSUS Status: Acute Priority: High Current Visit: Yes - Problem List Review Problem List Initiated/Reviewed/Updated: Yes - My Orders Last 24 Hours: My Active Orders 04/30/17 Lunch Soft Diet [DIET] 05/01/17 08:46 C DIFFICILE BY DNA [RM] Routine ROTAVIRUS ANTIGEN [MREF] Routine STOOL CULTURE [MREF] Routine WBC, STOOL [OP] Routine - Assessment Assessment:: Abdominal Pain Migraine - Plan Plan:: Patient's abdominal discomfort much improved. Does admit that the injection she got around 530 am has really helped. She does have a migraine headache right now, ibuprofen has not helped. Patient is voiding without difficulty. NO nausea this am. Tolerating liquids. Had fever last evening, afebrile this am. Blood pressure much improved today. CBC notes WBC from 7.8 yesterday to 3.0 today, CRP 1.1 increased to 2. Liver enzymes all normal now. Influenza screening negative. Will continue with IV fluids. Advance diet. Encourage ambulation. As patient has long-standing history of abdominal pain, will arrange for GI consult as all testing here up to this point over the last few months has been negative. 05-01-2017 Patient more uncomfortable today. Admits to nausea, diarrhea this am. No vomiting. States headache worse again this am. Not eating now. Had low grade fever again last night. WBC stable today at 3.1, CRP 1.7, improved. Will continue with IV fluids. Obtain stool studies today. Transfer to acute inpatient due to ongoing symptoms.
[2017-05-01] MEDS: Ibuprofen 200 MG Tab PO PRN (19:38)
[2017-05-01] MEDS: Temazepam 15 MG Cap PO PRN (21:33)
[2017-05-02 12:04] VITALS: BP 136/74
--- NOTE | 2017-05-05 15:59 | PCM.DCSUM1 ---
Discharge Summary - Hospital Course Free Text/Narrative:: Patient presented to clinic to see Dr. Shah as she had been experiencing a sore throat and nausea. She felt it could potentially have been related to starting a new blood pressure pill and had been taking magnesium. Patient was sent over to lab and xray for evaluation. While waiting for those results, she had loose stools and started running a fever. Was admitted for hydration, stool studies, and blood cultures. IV fluids started. Meds given for nausea. Initial labs were all relatively stable. Had been noted 2 weeks prior to have elevated liver enzymes, those are all normal now. - Discharge Data Discharge Date: 05/02/17 Discharge Disposition: Home, Self-Care 01 Condition: Fair - Discharge Diagnosis/Problem(s) (1) Epigastric abdominal pain of unknown etiology SNOMED Code(s): 135050251 ICD Code: R10.13 - EPIGASTRIC PAIN Status: Acute Priority: High (2) Migraine SNOMED Code(s): 69479248 ICD Code: G43.909 - MIGRAINE, UNSP, NOT INTRACTABLE, WITHOUT STATUS MIGRAINOSUS Status: Acute Priority: High - Patient Summary/Data Complications: none Hospital Course: Patient today has had intermittent pain throughout her stay, today improved. Did have loose stools, collection done but all results were negative. Lab results indicated more of a viral picture, WBC low. She did spike fevers the first 2 evenings while admitted. Did develop a migraine headache that did not respond to ibuprofen and Toradol but overall with IV fluids though it did resolve. She is now able to tolerate a full diet, is ambulating in the halls. She does have chronic issues with abdominal pain so will proceed with a referral to GI as she has had multiple labs, CT scan and scopes without finding the cause. - Patient Instructions Diet: Heart Healthy Diet Activity: As Tolerated Notify Provider of: Fever, Increased Pain, Nausea and/or Vomiting - Discharge Plan Home Medications: Home Meds Zolpidem [Ambien] 10 mg PO BEDTIME 01/07/14 [History] Ondansetron [Zofran] 4 - 8 mg PO Q6H PRN 04/23/14 [History] Cyclobenzaprine [Flexeril] 10 mg PO TID PRN 11/06/14 [History] Lisinopril/Hydrochlorothiazide [Lisinopril-Hctz 10-12.5 mg Tab] 1 each PO BEDTIME 04/29/17 [History] Magnesium 250 mg PO BEDTIME 04/29/17 [History] Referrals: Collin Shen PA-C [Phys[facility] [employer]] - (Follow up with César Shen in one week) - Discharge Summary/Plan Comment DC Time >30 min.: No Discharge Summary/Plan Comment: Discharge home. Zofran for nausea. Will arrange GI referral. Follow up with César Shen in a week for recheck. - General Info Date of Service: 05/05/17 Admission Dx/Problem (Free Text: Abdominal Pain Functional Status: Reports: Pain Controlled, Tolerating Diet, Ambulating - Review of Systems General: Reports: Fatigue. Denies: Fever, Weakness, Malaise HEENT: Reports: No Symptoms Pulmonary: Denies: Shortness of Breath, Cough Cardiovascular: Denies: Chest Pain, Edema, Lightheadedness Gastrointestinal: Reports: Nausea. Denies: Abdominal Pain, Diarrhea, Vomiting Genitourinary: Reports: No Symptoms Musculoskeletal: Reports: No Symptoms Skin: Reports: No Symptoms Neurological: Reports: No Symptoms - Patient Data Vitals - Most Recent: Last Vital Signs Temp 98.2 F 05/02/17 12:00 Pulse 57 L 05/02/17 12:00 Resp 20 05/02/17 12:00 BP 136/74 05/02/17 12:00 Pulse Ox 99 05/02/17 12:00 Weight - Most Recent: 207 lb 4.8 oz BRYN Results - Last 24 hrs: Microbiology 04/29/17 16:25 Aerobic Blood Culture - Final Blood - Venous - Lab Draw NO GROWTH AFTER 5 DAYS Anaerobic Blood Culture - Final NO GROWTH AFTER 5 DAYS 04/29/17 16:20 Aerobic Blood Culture - Final Blood - Venous NO GROWTH AFTER 5 DAYS Anaerobic Blood Culture - Final NO GROWTH AFTER 5 DAYS Med Orders - Current: Current Medications Discontinued Medications Fentanyl (Sublimaze) 25 mcg IVPUSH Q4H PRN PRN Reason: Abdominal Pain Last Admin: 04/29/17 18:06 Dose: 25 mcg Fentanyl (Sublimaze) 25 - 50 mcg IVPUSH Q4H PRN PRN Reason: Abdominal Pain Fentanyl (Sublimaze) 25 - 50 mcg IVPUSH Q2H PRN PRN Reason: Abdominal Pain Last Admin: 04/30/17 13:40 Dose: 25 mcg Sodium Chloride (Normal Saline) 1,000 mls @ 125 mls/hr IV ASDIRECTED ALEE Last Admin: 05/01/17 21:33 Dose: 125 mls/hr Sodium Chloride (Normal Saline) Confirm Administered Dose 50 mls @ as directed .ROUTE .STK-MED ONE Stop: 04/29/17 16:46 Last Admin: 04/29/17 16:40 Dose: Not Given Ondansetron HCl 8 mg/ Sodium (Chloride) 54 mls @ 100 mls/hr IV Q6H PRN PRN Reason: NAUSEA Last Admin: 05/01/17 13:49 Dose: 100 mls/hr Ibuprofen (Motrin) 400 mg PO Q6H PRN PRN Reason: Fever Last Admin: 05/01/17 19:38 Dose: 400 mg Ketorolac Tromethamine (Toradol) 30 mg IVPUSH ONETIME ONE Stop: 04/30/17 09:01 Last Admin: 04/30/17 09:21 Dose: 30 mg Ondansetron HCl (Zofran) 8 mg IV Q6H PRN PRN Reason: Nausea/Vomiting Temazepam (Restoril) 15 mg PO BEDTIME PRN PRN Reason: Sleep Last Admin: 05/01/17 21:33 Dose: 15 mg Tramadol HCl (Ultram) 50 mg PO Q4H PRN PRN Reason: Abdominal Pain Last Admin: 05/01/17 07:45 Dose: 50 mg - Exam General: Reports: Alert, Oriented HEENT: Reports: Mucous Membr. Moist/[place] Neck: Reports: Supple Lungs: Reports: Clear to Auscultation, Normal Respiratory Effort Cardiovascular: Reports: Regular Rate, Regular Rhythm GI/Abdominal Exam: Normal Bowel Sounds, Soft, Non-Tender Skin: Reports: Warm, Dry Neurological: Reports: No New Focal Deficit Psy/Mental Status: Reports: Alert, Normal Affect, Normal Mood *Q Meaningful Use (DIS) - VTE *Q VTE Criteria *Q: - Stroke *Q Stroke Criteria *Q: - AMI *Q AMI Criteria *Q:
== END 2017-05-02 13:55 | disposition home or self-care (01) | DRG 251 ==
LOC: CC.FCMC 14:04 → CC.MS 14:04 → UNDOADMOB 15:32 → CC.MS 15:32 → OBSVTOIN 05-01 08:57
PROVIDERS: ADMIT Family Medicine; ATTEND Family Medicine
DX: R10.13 Epigastric pain (principal); G43.909 Migraine, unspecified, not intractable, without status migrainosus; R50.9 Fever, unspecified; K75.9 Inflammatory liver disease, unspecified; M79.7 Fibromyalgia; Z88.6 Allergy status to analgesic agent; Z79.899 Other long term (current) drug therapy
CPT/HCPCS: 36415; 71020; 80053; 81001; 85025; 86140; 87040; 87045; 87046; 87425; 87493; 87804; 89055; 93005; 96361; 96365; 96366; 96375; 96376; A9270-GY; G0378; J1885; J2405; J3010; J7030; J7050

== ENCOUNTER 2017-07-11 19:05 | Emergency (ER) | payer BC ==
[2017-07-11 19:44] LABS: CHLORIDE,CL 102 mEq/L (98-106); SODIUM,NA 137 mEq/L (136-145)
[2017-07-11 19:47] VITALS: BP 144/72
--- NOTE | 2017-07-11 19:50 | EDM.PDOC ---
ED HPI GENERAL MEDICAL PROBLEM - General Chief Complaint: General Stated Complaint: nausea Time Seen by Provider: 07/11/17 19:35 Source of Information: Reports: Patient History Limitations: Reports: No Limitations - History of Present Illness INITIAL COMMENTS - FREE TEXT/NARRATIVE: Patient presents to ER with "not feeling good". Patient has chronic issues with abdominal pain and diarrhea and today is "a bad day". Rates her abdominal discomfort at an 8. She admits to nausea. Took 2 zofran at home earlier but doesn't feel like it has helped. Has history of elevated liver enzymes, are doing a biopsy next week. Admits that makes her "nervous". Has seen GI and had extensive work up over the last few years without "finding much". Onset: Gradual Duration: Getting Worse, Waxing/Waning Location: Reports: Abdomen Quality: Reports: Ache Severity: Moderate Improves with: Reports: Rest Associated Symptoms: Reports: Loss of Appetite, Nausea/Vomiting. Denies: Confusion, Chest Pain, Cough, Fever/Chills, Headaches, Shortness of Breath, Weakness Treatments OUTREACH DIRECTOR: Reports: Other Medication(s) (zofran) Middle Abdomen Pain Score (Numeric/FACES): 8 - Related Data Allergies Allergy/AdvReac Type Severity Reaction Status Date / Time acetaminophen [From Percocet] AdvReac Dizziness Verified 07/11/17 08:26 oxycodone HCl [From Percocet] AdvReac Dizziness Verified 07/11/17 08:26 Home Meds: Home Meds Zolpidem [Ambien] 10 mg PO BEDTIME 01/07/14 [History] Ondansetron [Zofran] 4 - 8 mg PO Q6H PRN 04/23/14 [History] Cyclobenzaprine [Flexeril] 10 mg PO TID PRN 11/06/14 [History] Lisinopril/Hydrochlorothiazide [Lisinopril-Hctz 10-12.5 mg Tab] 1 each PO BEDTIME 04/29/17 [History] Magnesium 250 mg PO BEDTIME 04/29/17 [History] Lubiprostone [Amitiza] 8 mcg PO Q2D 07/11/17 [History] Past Medical History HEENT History: Reports: Other (See Below) Other HEENT History: [place] Cardiovascular History: Reports: Hypertension Gastrointestinal History: Reports: Chronic Constipation Genitourinary History: Reports: None 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 Bilateral carpal tunnel Social & Family History - Family History Family Medical History: Noncontributory - Tobacco Use Smoking Status *Q: Former Smoker Years of Tobacco use: 1 - Alcohol Use Days Per Week of Alcohol Use: 0 - Recreational Drug Use Recreational Drug Use: No ED ROS GENERAL - Review of Systems Review Of Systems: See Below Constitutional: Reports: Chills, Malaise, Fatigue, Decreased Appetite. Denies: Fever HEENT: Reports: No Symptoms Respiratory: Denies: Shortness of Breath, Wheezing, Cough Cardiovascular: Denies: Chest Pain, Edema, Lightheadedness Endocrine: Reports: Fatigue GI/Abdominal: Reports: Abdominal Pain, Diarrhea, Nausea. Denies: Black Stool, Bloody Stool, Vomiting : Reports: No Symptoms Musculoskeletal: Reports: No Symptoms Skin: Reports: No Symptoms Neurological: Reports: No Symptoms ED EXAM, GENERAL - Physical Exam Exam: See Below Exam Limited By: No Limitations General Appearance: Alert, WD/WN, No Apparent Distress Ears: Normal External Exam, Normal TMs Nose: Normal Inspection, Normal Mucosa, No Blood Throat/Mouth: Normal Inspection, Normal Oropharynx Head: Normocephalic Neck: Normal Inspection Respiratory/Chest: No Respiratory Distress, Lungs Clear, Normal Breath Sounds Cardiovascular: Regular Rate, Rhythm GI/Abdominal: Normal Bowel Sounds, Soft, Tender (diffusely throughout) Extremities: Normal Inspection, Normal Capillary Refill Neurological: Alert, Oriented Skin Exam: Warm, Dry Course - Vital Signs Last Recorded V/S: Last Vital Signs Temp 99 F 07/11/17 19:13 Pulse 87 07/11/17 19:13 Resp 18 07/11/17 19:13 BP 144/72 H 07/11/17 19:13 Pulse Ox - Orders/Labs/Meds Orders: Active Orders 24 hr Category Date Time Status Lactated Ringers [Ringers, Lactated] 1,000 ml Med 07/11/17 19:53 Ordered IV .BOLUS Medication Orders Lactated Ringer's (Ringers, Lactated) 1,000 mls @ 999 mls/hr IV .BOLUS ONE Stop: 07/11/17 20:53 Labs: Laboratory Tests 07/11/17 07/11/17 07/11/17 Range/Units 19:25 19:25 19:25 WBC 5.4 (5.0-10.0) 10^3/uL RBC 5.16 (4.00-5.50) 10^6/uL Hgb 14.7 (12.0-16.0) g/dL Hct 44.0 (37.0-47.0) % MCV 85.3 (82.0-94.0) fL MCH 28.5 (27.0-32.0) pg MCHC 33.4 (33.0-38.0) g/dL RDW Coeff of Myra 13.5 (11.0-15.0) % Plt Count 230 (150-400) 10^3/uL Neut % (Auto) 85.7 H (35-85) % Lymph % (Auto) 9.1 L (10-55) % [place] % (Auto) 4.4 (0-16) % Eos % (Auto) 0.6 (0-5) % Baso % (Auto) 0.2 (0-3) % Neut # (Auto) 4.64 (1.80-7.00) 10^3/uL Lymph # (Auto) 0.49 L (1.00-4.80) 10^3/uL [place] # (Auto) 0.24 (0.00-0.80) 10^3/uL Eos # (Auto) 0.03 (0.00-0.45) 10^3/uL Baso # (Auto) 0.01 10^3/uL Sodium 137 (136-145) mEq/L Potassium 3.5 (3.5-5.0) mEq/L Chloride 102 (98-106) mEq/L Carbon Dioxide 25 (21-32) mmol/L BUN 18 (7-18) mg/dL Creatinine 0.9 (0.6-1.0) mg/dL Est Cr Clr Drug Dosing TNP Estimated GFR (MDRD) > 60 (>=60) mL/min Glucose 102 H (75-99) mg/dL Calcium 9.2 (8.4-10.1) mg/dL Total Bilirubin 0.9 (0.0-1.0) mg/dL AST 25 (15-37) U/L ALT 67 (12-78) U/L Alkaline Phosphatase 105 (46-116) U/L C-Reactive Protein 1.5 H (0.2-0.8) mg/dL Total Protein 7.6 (6.4-8.2) g/dL Albumin 3.8 (3.4-5.0) g/dL Urine Color Yellow (YELLOW) Urine Appearance Slightly cloudy (CLEAR) Urine pH 5.5 (4.5-8.0) Ur Specific [place] >= 1.030 H (1.003-1.020) Urine Protein Negative (NEGATIVE) mg/dL Urine Glucose (UA) Negative (NEGATIVE) mg/dL Urine Ketones 40 H (NEGATIVE) mg/dL Urine Occult Blood Trace-lysed H (NEGATIVE) Urine Nitrite Negative (NEGATIVE) Urine Bilirubin Negative (NEGATIVE) Urine Urobilinogen 0.2 (0.2-1.0) EU/dL Ur Leukocyte Esterase Negative (NEGATIVE) Urine RBC 0-5 (0-5) /HPF Urine WBC Not seen (0-5) /HPF Ur Squamous Epith Cells Moderate H (NOT SEEN) /HPF Urine Bacteria Few H (NOT SEEN) /HPF Urine Mucus Few H (NOT SEEN) /HPF Meds: Medications Generic Name Dose Route Start Last Admin Trade Name Freq PRN Reason Stop Dose Admin Lactated Ringer's 1,000 mls @ 999 mls/hr 07/11/17 19:53 Ringers, Lactated IV 07/11/17 20:53 .BOLUS ONE Discontinued Medications Generic Name Dose Route Start Last Admin Trade Name Freq PRN Reason Stop Dose Admin Promethazine HCl 25 mg 07/11/17 19:47 07/11/17 19:52 Phenergan IM 07/11/17 19:48 25 mg NOW ONE Administration - Re-Assessments/Exams Free Text/Narrative Re-Assessment/Exam: 07/11/17 20:09 Labs all much improved from last week. Liver enzymes back to normal. IV fluids ordered as patient states she still feels "dry" due to the diarrhea. Phenergan given IM. Departure - Departure Time of Disposition: 20:10 Disposition: Home, Self-Care 01 Condition: Good Clinical Impression: Epigastric abdominal pain of unknown etiology - Discharge Information Referrals: Trevor Shah MD [Primary Care Provider] - Forms: ED Department Discharge Additional Instructions: 1. Rest 2. Push fluids 3. Zofran as needed for nausea 4. Keep scheduled appointment next week with GI for liver biopsy as planned 5. Return if symptoms worsen or call with any questions. - My Orders Last 24 Hours: My Active Orders 07/11/17 19:53 Lactated Ringers [Ringers, Lactated] 1,000 ml IV .BOLUS - Assessment/Plan Last 24 Hours: My Active Orders 07/11/17 19:53 Lactated Ringers [Ringers, Lactated] 1,000 ml IV .BOLUS
[2017-07-11] MEDS: Promethazine 25 MG/ML SDV IM ONE (19:52)
[2017-07-11] MEDS: Lactated Ringers 1,000 ML IV ONE (20:11)
== END 2017-07-11 21:25 | disposition home or self-care (01) ==
LOC: CC.ED 19:05
DX: R10.13 Epigastric pain (principal); I10 Essential (primary) hypertension; Z88.6 Allergy status to analgesic agent; Z88.5 Allergy status to narcotic agent; Z79.899 Other long term (current) drug therapy; Z90.49 Acquired absence of other specified parts of digestive tract; Z90.710 Acquired absence of both cervix and uterus; Z87.891 Personal history of nicotine dependence
CPT/HCPCS: 36415; 80053; 81001; 85025; 86140; 96360; 96361; 96372; 99283; J2550; J7120

== ENCOUNTER → 2018-07-03 | Day surgery (SDC) | payer BC ==
[~2018-07-03] MED LIST: Glycopyrrolate 0.2 MG/ML SDV IVPUSH ONE; Propofol 200 MG/20 ML SDV IV ONE
[2018-07-03] MEDS: Lactated Ringers 1,000 ML IV SCH (11:25)
[2018-07-03 13:22] VITALS: BP 134/81
--- NOTE | 2018-07-03 13:56 | OR ---
DATE OF OPERATION: 07/03/2018 PREOPERATIVE DIAGNOSIS: EPIGASTRIC PAIN. POSTOPERATIVE DIAGNOSIS: GASTRITIS/DUODENITIS. SURGEON: Trevor Shah MD PROCEDURE: EGD WITH BIOPSIES X5, MAC. ANESTHESIA: PULLER OVER. COMPLICATIONS: None. SPECIMEN: 1. Duodenal biopsy x2. 2. Antral biopsy x2. 3. MAC. 4. Adenomatous polyp, upper fundus. FINDINGS: 1. Full-length EGD. 2. Moderate antral gastritis and duodenitis without ulceration or erosion. 3. Benign adenomatous polyp, mid to upper fundus. RECOMMENDATIONS: The patient will be placed on b.i.d. proton pump therapy and await pathology and MAC reports. INDICATIONS: The patient has a chronic issue with dyspepsia. She has known fatty liver disease, but she has been having worsening epigastric pain. We elected to proceed with EGD. DESCRIPTION OF PROCEDURE: The patient was prepped and draped, placed in the left lateral decubitus position. A lubricated Olympus gastroscope was inserted over bit and advanced to cricopharyngeus area and intubated in the esophagus without difficulty. Esophageal lining was benign in its entire course. The Z- line was crisp and sharp at 36 cm. No hernia was seen. No distal esophagitis, stricturing, ulceration, or Booth's changes. The scope was advanced into the stomach through the pylorus into the second portion of the duodenum. The second portion of duodenum was benign and the duodenal bulb had [id number] changes of diffuse duodenitis without ulceration or erosion. Two biopsies were taken. The scope was brought back into the stomach and retroflexed. The upper fundus and cardia were benign other than a small adenomatous polyp which was removed with a forceps. In the most distal portion of the fundus and throughout the entire antrum, the patient had evidence of gastritis without erosion or ulceration. Two biopsies of the antrum were taken along with a CLOtest. Air was then suctioned from the stomach and the scope removed without complication. KONG/RUSH /[id number]
== END ==
LOC: CC.SDS 10:53
PROVIDERS: ATTEND Family Medicine
DX: K29.50 Unspecified chronic gastritis without bleeding (principal); K31.7 Polyp of stomach and duodenum; Z79.899 Other long term (current) drug therapy; Z88.5 Allergy status to narcotic agent; Z88.6 Allergy status to analgesic agent
CPT/HCPCS: 87081; J2704; J3490; J7120

== ENCOUNTER 2018-09-01 04:38 | Emergency (ER) | payer BC ==
[2018-09-01 04:43] VITALS: BP 138/83
[2018-09-01] MEDS ORDERED: Lactated Ringers 1,000 ML IV ONE (04:52)
[2018-09-01] MEDS ORDERED: Ketorolac 30 MG/ML SDV IVPUSH ONE (04:52)
[2018-09-01] MEDS ORDERED: cefTRIAXone 1 GM Vial IVPUSH SCH (05:00)
--- NOTE | 2018-09-01 05:05 | EDM.PDOC ---
ED HPI GENERAL MEDICAL PROBLEM - General Chief Complaint: Respiratory Problem Stated Complaint: COUGH, SINUS PROPLEMS Time Seen by Provider: 09/01/18 04:46 Source of Information: Reports: Patient History Limitations: Reports: No Limitations - History of Present Illness INITIAL COMMENTS - FREE TEXT/NARRATIVE: Patient presents to ER with complaints of headache, nausea, and sinus pressure. States started having symptoms on Friday with increased cough, sinus congestion and nausea. Did see Dr. Shah earlier today, was started on Doxycycline. Has taken 2 doses so far. Has felt chilled. Not able to eat or drink as well due to nausea. Questions if is dehydrated, causing the headache. No fevers that she is aware of. Has not been able to sleep due to cough. Has been taking Zyrtec D and Robitussin as well. Cough is nonproductive. No shortness of breath. Onset: Gradual Duration: Day(s): Location: Reports: Head, Chest Quality: Reports: Sharp, Throbbing Severity: Severe Improves with: Reports: None Associated Symptoms: Reports: Cough, Fever/Chills, Headaches, Malaise, Nausea/ Vomiting. Denies: Chest Pain, cough w sputum, Shortness of Breath Treatments CAMP DISHWASHER: Reports: Other Medication(s) Other Treatments CAMP DISHWASHER: doxycycline - Related Data Allergies Allergy/AdvReac Type Severity Reaction Status Date / Time oxycodone HCl [From Percocet] AdvReac Dizziness Verified 09/01/18 04:43 Home Meds: Home Meds Zolpidem [Ambien] 10 mg PO BEDTIME 01/07/14 [History] Methocarbamol 750 mg PO TID PRN 02/09/18 [History] SUMAtriptan [Imitrex] 50 mg PO ASDIRECTED 02/09/18 [History] Pantoprazole Sodium 40 mg PO DAILY 07/01/18 [History] Promethazine HCl 25 mg PO TID 07/01/18 [History] traZODone HCl [Trazodone HCl] 50 mg PO BEDTIME PRN 09/01/18 [History] Past Medical History HEENT History: Reports: Other (See Below) Other HEENT History: [place] Cardiovascular History: Reports: Hypertension Gastrointestinal History: Reports: Chronic Constipation Genitourinary History: Reports: None 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 Bilateral carpal tunnel Social & Family History - Family History Family Medical History: Noncontributory - Tobacco Use Smoking Status *Q: Never Smoker - Caffeine Use Caffeine Use: Reports: None - Recreational Drug Use Recreational Drug Use: No ED ROS GENERAL - Review of Systems Review Of Systems: See Below Constitutional: Reports: Chills, Malaise, Weakness, Fatigue, Decreased Appetite. Denies: Fever HEENT: Reports: Ear Pain, Sinus Problem, Throat Pain. Denies: Vertigo Respiratory: Reports: Cough. Denies: Shortness of Breath, Sputum Cardiovascular: Denies: Chest Pain, Edema, Lightheadedness Endocrine: Reports: Fatigue GI/Abdominal: Reports: Nausea. Denies: Abdominal Pain, Vomiting : Reports: No Symptoms Musculoskeletal: Reports: No Symptoms Skin: Reports: No Symptoms Neurological: Reports: Headache Psychiatric: Reports: No Symptoms ED EXAM, GENERAL - Physical Exam Exam: See Below Exam Limited By: No Limitations General Appearance: Alert, WD/WN, No Apparent Distress Ears: Normal External Exam, Normal TMs Nose: Nasal Drainage, Other (mucosa irritated, bloody drainage noted) Throat/Mouth: Normal Inspection, Normal Oropharynx Head: Normocephalic Neck: Normal Inspection, Supple, Non-Tender Respiratory/Chest: No Respiratory Distress, Lungs Clear, Normal Breath Sounds Cardiovascular: Regular Rate, Rhythm GI/Abdominal: Normal Bowel Sounds, Soft, Non-Tender Neurological: Alert, Oriented Skin Exam: Warm, Dry Course - Vital Signs Last Recorded V/S: Last Vital Signs Temp 97.9 F 09/01/18 04:40 Pulse 86 09/01/18 04:40 Resp 20 09/01/18 04:40 BP 138/83 09/01/18 04:40 Pulse Ox 97 09/01/18 04:40 Departure - Departure Time of Disposition: 05:09 Disposition: Home, Self-Care 01 Condition: Good Clinical Impression: Sinusitis - Discharge Information *PRESCRIPTION DRUG MONITORING PROGRAM REVIEWED*: No *COPY OF PRESCRIPTION DRUG MONITORING REPORT IN PATIENT SALMA: No Additional Instructions: 1. Push fluids 2. Prometh as at home for nausea 3. Continue Doxycycline 4. Tylenol or ibuprofen for fever or discomfort 5. Follow up if persisting concerns.
== END 2018-09-01 06:22 | disposition home or self-care (01) ==
LOC: CC.ED 04:38
DX: J32.9 Chronic sinusitis, unspecified (principal); R11.0 Nausea; R53.1 Weakness; I10 Essential (primary) hypertension; Z79.899 Other long term (current) drug therapy; Z88.5 Allergy status to narcotic agent
CPT/HCPCS: 96361; 96374; 99283-25; J0696; J1885; J7120

== ENCOUNTER 2018-09-01 12:51 | Observation (INO) | payer BC ==
[2018-09-01] MEDS ORDERED: Sodium Chloride 0.9% 250 ML IV SCH (13:45)
[2018-09-01] MEDS: Sodium Chloride 0.9% 250 ML IV SCH ×3 (13:46→16:08)
[2018-09-01] MEDS ORDERED: Sodium Chloride 0.9% 250 ML ONE (13:47)
[2018-09-01 13:49] LABS: CHLORIDE,CL 105 mEq/L (98-106); SODIUM,NA 142 mEq/L (136-145)
[2018-09-01] MEDS ORDERED: Ketorolac 30 MG/ML SDV IVPUSH ONE (14:16)
[2018-09-01] MEDS ORDERED: Ondansetron 8 MG in Sodium Chloride 0.9% 50 ML IV STA (14:16)
[2018-09-01] MEDS ORDERED: diphenhydrAMINE 50 MG/ML SDV IVPUSH ONE (16:01)
[2018-09-01] MEDS ORDERED: Prochlorperazine 10 MG Tab PO ONE (16:01)
[2018-09-01] MEDS ORDERED: Promethazine 12.5 MG in Sodium Chloride 0.9% 50 ML IV PRN (17:53)
[2018-09-01] MEDS ORDERED: diphenhydrAMINE 50 MG/ML SDV IVPUSH PRN (17:53)
[2018-09-01] MEDS ORDERED: Prochlorperazine 10 MG Tab PO PRN (17:53)
[2018-09-01] MEDS: Sodium Chloride 0.9% 1,000 ML IV SCH ×2 (18:24→20:37)
--- NOTE | 2018-09-01 18:44 | EDM.PDOC ---
ED HPI GENERAL MEDICAL PROBLEM - General Chief Complaint: General Stated Complaint: COUGH/SORE THROAT/HEADACH/VOMITTING Time Seen by Provider: 09/01/18 13:18 Source of Information: Reports: Patient History Limitations: Reports: No Limitations - History of Present Illness INITIAL COMMENTS - FREE TEXT/NARRATIVE: Angie is a 58 yo female who presents to the ED with concerns of a severe headache, nausea and vomiting. She states she was seen by Dr. Shah in the clinic yesterday and was started on doxycycline for bronchitis. She admits this morning she wasn't feel well and was seen in the ED and received 1 L of IVF, IV rocephin, and IV toradol. She states she went home to sleep this morning but upon waking up she didn't feel any better and her headache had gotten worse. She suffers from migraine headaches and admits it is like her typical migraine, just really intense. States she also had an episode of emesis approx 1/2 hour before arrival. Headache Pain Score (Numeric/FACES): 4 - Related Data Allergies Allergy/AdvReac Type Severity Reaction Status Date / Time oxycodone HCl [From Percocet] AdvReac Dizziness Verified 09/01/18 04:43 Home Meds: Home Meds Zolpidem [Ambien] 10 mg PO BEDTIME 01/07/14 [History] Methocarbamol 750 mg PO TID PRN 02/09/18 [History] SUMAtriptan [Imitrex] 50 mg PO ASDIRECTED 02/09/18 [History] Pantoprazole Sodium 40 mg PO DAILY 07/01/18 [History] Promethazine HCl 25 mg PO TID 07/01/18 [History] Doxycycline Monohydrate 100 mg PO BID 09/01/18 [History] Past Medical History HEENT History: Reports: Other (See Below) Other HEENT History: [place] Cardiovascular History: Reports: Hypertension Gastrointestinal History: Reports: Chronic Constipation Genitourinary History: Reports: None 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 Bilateral carpal tunnel Social & Family History - Family History Family Medical History: Noncontributory - Tobacco Use Smoking Status *Q: Never Smoker - Caffeine Use Caffeine Use: Reports: None - Recreational Drug Use Recreational Drug Use: No ED ROS GENERAL - Review of Systems Review Of Systems: See Below Constitutional: Denies: Fever, Chills HEENT: Reports: Sinus Problem. Denies: Vision Change Respiratory: Reports: No Symptoms Cardiovascular: Reports: No Symptoms GI/Abdominal: Reports: Nausea, Vomiting. Denies: Abdominal Pain, Constipation, Diarrhea Musculoskeletal: Reports: No Symptoms Skin: Reports: No Symptoms Neurological: Reports: Headache. Denies: Confusion, Dizziness, Numbness, Paresthesia, Syncope, Difficulty Walking, Gait Disturbance Psychiatric: Reports: No Symptoms ED EXAM, GENERAL - Physical Exam Exam: See Below Exam Limited By: No Limitations General Appearance: Alert, Mild Distress Eye Exam: Bilateral Eye: EOMI, PERRL Ears: Normal External Exam, Normal Canal, Hearing Grossly Normal, Normal TMs Nose: Normal Inspection, Normal Mucosa, No Blood Throat/Mouth: Normal Inspection, Normal Lips, Normal Teeth, Normal Gums, Normal Oropharynx, Normal Voice, No Airway Compromise Head: Atraumatic, Normocephalic Neck: Normal Inspection, Supple, Non-Tender Respiratory/Chest: No Respiratory Distress, Lungs Clear, Normal Breath Sounds, No Accessory Muscle Use, Chest Non-Tender Cardiovascular: Regular Rate, Rhythm, No Edema, No Murmur GI/Abdominal: Normal Bowel Sounds, Soft, Non-Tender Extremities: Normal Inspection, Normal Capillary Refill Neurological: Alert, Oriented, Normal Cognition, No Motor/Sensory Deficits, Other (negative meningeal signs. ) Psychiatric: Normal Affect, Normal Mood Skin Exam: Warm, Dry, Intact, Normal Color, No Rash Course - Vital Signs Last Recorded V/S: Last Vital Signs Temp 98 F 09/01/18 17:21 Pulse 68 09/01/18 17:21 Resp 18 09/01/18 17:21 BP 132/71 09/01/18 17:21 Pulse Ox 96 09/01/18 17:21 - Orders/Labs/Meds Orders: Active Orders 24 hr Category Date Time Status Head wo Cont [CT] Stat Exams 09/01/18 13:16 Taken Medication Orders Diphenhydramine HCl (Benadryl) 12.5 mg IVPUSH Q6H PRN PRN Reason: Headache Promethazine HCl 12.5 mg/ (Sodium Chloride) 50.5 mls @ 100 mls/hr IV Q6H PRN PRN Reason: Nausea/Vomiting Sodium Chloride (Normal Saline) 1,000 mls @ 125 mls/hr IV ASDIRECTED ALEE Last Admin: 09/01/18 18:24 Dose: 125 mls/hr Ketorolac Tromethamine (Toradol) 15 mg IVPUSH Q8H PRN PRN Reason: Headache Stop: 09/06/18 17:37 Pantoprazole Sodium (Protonix) 40 mg PO DAILY [facility] Prochlorperazine Maleate (Compazine) 10 mg PO Q8H PRN PRN Reason: headache Labs: Laboratory Tests 09/01/18 09/01/18 Range/Units 13:31 13:31 WBC 3.6 L (5.0-10.0) 10^3/uL RBC 4.94 (4.00-5.50) 10^6/uL Hgb 14.3 (12.0-16.0) g/dL Hct 42.8 (37.0-47.0) % MCV 86.6 (82.0-94.0) fL MCH 28.9 (27.0-32.0) pg MCHC 33.4 (33.0-38.0) g/dL RDW Coeff of Myra 13.0 (11.0-15.0) % Plt Count 167 (150-400) 10^3/uL Neut % (Auto) 69.4 (35-85) % Lymph % (Auto) 15.6 (10-55) % [place] % (Auto) 12.8 (0-16) % Eos % (Auto) 1.4 (0-5) % Baso % (Auto) 0.8 (0-3) % Neut # (Auto) 2.49 (1.80-7.00) 10^3/uL Lymph # (Auto) 0.56 L (1.00-4.80) 10^3/uL [place] # (Auto) 0.46 (0.00-0.80) 10^3/uL Eos # (Auto) 0.05 (0.00-0.45) 10^3/uL Baso # (Auto) 0.03 10^3/uL ESR 13 (0-20) mm/hr Sodium 142 (136-145) mEq/L Potassium 3.4 L (3.5-5.0) mEq/L Chloride 105 (98-106) mEq/L Carbon Dioxide 27 (21-32) mmol/L BUN 14 (7-18) mg/dL Creatinine 0.9 (0.6-1.0) mg/dL Est Cr Clr Drug Dosing 55.20 mL/min Estimated GFR (MDRD) > 60 (>=60) mL/min Glucose 107 H (75-99) mg/dL Calcium 9.1 (8.4-10.1) mg/dL Total Bilirubin 0.8 (0.0-1.0) mg/dL AST 18 (15-37) U/L ALT 31 (12-78) U/L Alkaline Phosphatase 95 (46-116) U/L C-Reactive Protein 1.8 H (0.2-0.8) mg/dL Total Protein 7.0 (6.4-8.2) g/dL Albumin 3.3 L (3.4-5.0) g/dL Meds: Medications Generic Name Dose Route Start Last Admin Trade Name Freq PRN Reason Stop Dose Admin Diphenhydramine HCl 12.5 mg 09/01/18 17:53 Benadryl IVPUSH Q6H PRN Headache Promethazine HCl 12.5 mg/ 50.5 mls @ 100 mls/hr 09/01/18 17:53 Sodium Chloride IV Q6H PRN Nausea/Vomiting Sodium Chloride 1,000 mls @ 125 mls/hr 09/01/18 17:53 09/01/18 18:24 Normal Saline IV 125 mls/hr ASDIRECTED ALEE Administration Ketorolac Tromethamine 15 mg 09/01/18 17:53 Toradol IVPUSH 09/06/18 17:37 Q8H PRN Headache Pantoprazole Sodium 40 mg 09/02/18 08:00 Protonix PO DAILY ALEE Prochlorperazine Maleate 10 mg 09/01/18 17:53 Compazine PO Q8H PRN headache Discontinued Medications Generic Name Dose Route Start Last Admin Trade Name Freq PRN Reason Stop Dose Admin Diphenhydramine HCl 25 mg 09/01/18 16:01 09/01/18 16:08 Benadryl IVPUSH 09/01/18 16:02 25 mg ONETIME ONE Administration Sodium Chloride 250 mls @ 150 mls/hr 09/01/18 13:45 Normal Saline IV ASDIRECTED ALEE Sodium Chloride Confirm 09/01/18 13:47 09/01/18 13:46 Normal Saline Administered 09/01/18 13:48 Not Given Dose 250 mls @ as directed .ROUTE .STK-MED ONE Sodium Chloride 250 mls @ 150 mls/hr 09/01/18 13:45 09/01/18 16:08 Normal Saline IV 150 mls/hr ASDIRECTED ALEE Administration Ondansetron HCl 8 mg/ Sodium 54 mls @ 100 mls/hr 09/01/18 14:16 09/01/18 14: 22 Chloride IV 09/01/18 14:48 100 mls/hr NOW STA Administration Ketorolac Tromethamine 30 mg 09/01/18 14:16 09/01/18 14:23 Toradol IVPUSH 09/01/18 14:17 30 mg ONETIME ONE Administration Prochlorperazine Maleate 10 mg 09/01/18 16:01 09/01/18 16:09 Compazine PO 09/01/18 16:02 10 mg ONETIME ONE Administration Departure - Departure Time of Disposition: 16:45 Disposition: Refer to Observation Clinical Impression: Migraine Qualifiers: Migraine type: unspecified Intractability: intractable Nausea and vomiting Qualifiers: Vomiting type: unspecified Vomiting Intractability: unspecified Qualified Code( s): R11.2 - Nausea with vomiting, unspecified - Discharge Information - Problem List & Annotations (1) Migraine SNOMED Code(s): 82261282 Code(s): G43.909 - MIGRAINE, UNSP, NOT INTRACTABLE, WITHOUT STATUS MIGRAINOSUS Status: Acute Current Visit: Yes Qualifiers: Migraine type: unspecified Intractability: intractable (2) Nausea and vomiting SNOMED Code(s): 66756965 Code(s): R11.2 - NAUSEA WITH VOMITING, UNSPECIFIED Status: Acute Current Visit: Yes Qualifiers: Vomiting type: unspecified Vomiting Intractability: unspecified Qualified Code(s): R11.2 - Nausea with vomiting, unspecified - My Orders Last 24 Hours: My Active Orders 09/01/18 13:16 Head wo Cont [CT] Stat - Assessment/Plan Admission H&P: Please use this note as an admission H&P Last 24 Hours: My Active Orders 09/01/18 13:16 Head wo Cont [CT] Stat Plan: Patient was initially taken to same day care to receive IV fluids, Toradol, Compazine and Benadryl. She initially received the Toradol and after about an hour she had not had any relief. After the Compazine and Benadryl headache did improve but was still present. Elected to admit to Dr. Shah's services under acute care. Dr. Shah consulted and was in agreement with admission. Angie was comfortable and will closely monitor thru the night.
[2018-09-01] MEDS: Ketorolac 30 MG/ML SDV IVPUSH PRN (22:47)
[2018-09-02] MEDS: Ketorolac 30 MG/ML SDV IVPUSH PRN (07:42)
[2018-09-02] MEDS: **PTOM** Pantoprazole 40 MG Tab.CR PO SCH (07:42)
[2018-09-02] MEDS ORDERED: Codeine/Promethazine 10-6.25 MG/5 ML Syrup 5 ML UD Cup PO PRN (08:56)
--- NOTE | 2018-09-02 09:03 | PCM.PN ---
- General Info Date of Service: 09/02/18 Admission Dx/Problem (Free Text): Migraine Nausea/vomiting Functional Status: Reports: Tolerating Diet, Ambulating. Denies: Pain Controlled - Review of Systems General: Reports: Fatigue, Malaise HEENT: Reports: Headaches, Sinus Congestion, Rhinitis. Denies: Ear Pain, Sore Throat Pulmonary: Reports: Cough. Denies: Shortness of Breath, Wheezing Cardiovascular: Denies: Chest Pain, Edema, Lightheadedness Gastrointestinal: Reports: Nausea. Denies: Abdominal Pain, Vomiting Genitourinary: Reports: No Symptoms Musculoskeletal: Reports: No Symptoms Skin: Reports: No Symptoms Neurological: Reports: Headache - Patient Data Vitals - Most Recent: Last Vital Signs Temp 99.7 F 09/02/18 07:46 Pulse 69 09/02/18 07:46 Resp 20 09/02/18 07:46 BP 132/67 09/02/18 07:46 Pulse Ox 93 L 09/02/18 07:46 Weight - Most Recent: 187 lb 1.6 oz I&O - Last 24 Hours: Intake & Output 09/01/18 09/02/18 09/02/18 22:59 06:59 14:59 Intake Total 527 Balance 527 Lab Results Last 24 Hours: Laboratory Results - last 24 hr 09/01/18 09/01/18 Range/Units 13:31 13:31 WBC 3.6 L (5.0-10.0) 10^3/uL RBC 4.94 (4.00-5.50) 10^6/uL Hgb 14.3 (12.0-16.0) g/dL Hct 42.8 (37.0-47.0) % MCV 86.6 (82.0-94.0) fL MCH 28.9 (27.0-32.0) pg MCHC 33.4 (33.0-38.0) g/dL RDW Coeff of [place] 13.0 (11.0-15.0) % Plt Count 167 (150-400) 10^3/uL Neut % (Auto) 69.4 (35-85) % Lymph % (Auto) 15.6 (10-55) % [place] % (Auto) 12.8 (0-16) % Eos % (Auto) 1.4 (0-5) % Baso % (Auto) 0.8 (0-3) % Neut # (Auto) 2.49 (1.80-7.00) 10^3/uL Lymph # (Auto) 0.56 L (1.00-4.80) 10^3/uL [place] # (Auto) 0.46 (0.00-0.80) 10^3/uL Eos # (Auto) 0.05 (0.00-0.45) 10^3/uL Baso # (Auto) 0.03 10^3/uL ESR 13 (0-20) mm/hr Sodium 142 (136-145) mEq/L Potassium 3.4 L (3.5-5.0) mEq/L Chloride 105 (98-106) mEq/L Carbon Dioxide 27 (21-32) mmol/L BUN 14 (7-18) mg/dL Creatinine 0.9 (0.6-1.0) mg/dL Est Cr Clr Drug Dosing 55.20 mL/min Estimated GFR (MDRD) > 60 (>=60) mL/min Glucose 107 H (75-99) mg/dL Calcium 9.1 (8.4-10.1) mg/dL Total Bilirubin 0.8 (0.0-1.0) mg/dL AST 18 (15-37) U/L ALT 31 (12-78) U/L Alkaline Phosphatase 95 (46-116) U/L C-Reactive Protein 1.8 H (0.2-0.8) mg/dL Total Protein 7.0 (6.4-8.2) g/dL Albumin 3.3 L (3.4-5.0) g/dL Michele Results Last 24 Hours: Microbiology 09/01/18 13:31 Influenza Type A Antigen Screen - Final Nasal, Unspecified NEGATIVE INFLUENZA A VIRUS AG Influenza Type B Antigen Screen - Final NEGATIVE INFLUENZA B VIRUS AG Med Orders - Current: Current Medications Diphenhydramine HCl (Benadryl) 12.5 mg IVPUSH Q6H PRN PRN Reason: Headache Promethazine HCl 12.5 mg/ (Sodium Chloride) 50.5 mls @ 100 mls/hr IV Q6H PRN PRN Reason: Nausea/Vomiting Sodium Chloride (Normal Saline) 1,000 mls @ 125 mls/hr IV ASDIRECTED [facility] Last Admin: 09/01/18 20:37 Dose: 125 mls/hr Ketorolac Tromethamine (Toradol) 15 mg IVPUSH Q8H PRN PRN Reason: Headache Stop: 09/06/18 17:37 Last Admin: 09/02/18 07:42 Dose: 15 mg Non-Formulary Medication (Doxycycline Monohydrate [Doxycycline Monohydrate]) 100 mg PO BID [facility] Pantoprazole Sodium (Protonix) 40 mg PO DAILY [facility] Last Admin: 09/02/18 07:42 Dose: 40 mg Prochlorperazine Maleate (Compazine) 10 mg PO Q8H PRN PRN Reason: headache Promethazine HCl/Codeine (Phenergan With Codeine) 10 ml PO Q6H PRN PRN Reason: Cough Discontinued Medications Diphenhydramine HCl (Benadryl) 25 mg IVPUSH ONETIME ONE Stop: 09/01/18 16:02 Last Admin: 09/01/18 16:08 Dose: 25 mg Sodium Chloride (Normal Saline) 250 mls @ 150 mls/hr IV ASDIRECTED [facility] Sodium Chloride (Normal Saline) Confirm Administered Dose 250 mls @ as directed .ROUTE .STK-MED ONE Stop: 09/01/18 13:48 Last Admin: 09/01/18 13:46 Dose: Not Given Sodium Chloride (Normal Saline) 250 mls @ 150 mls/hr IV ASDIRECTED [facility] Last Admin: 09/01/18 16:08 Dose: 150 mls/hr Ondansetron HCl 8 mg/ Sodium (Chloride) 54 mls @ 100 mls/hr IV NOW STA Stop: 09/01/18 14:48 Last Admin: 09/01/18 14:22 Dose: 100 mls/hr Ketorolac Tromethamine (Toradol) 30 mg IVPUSH ONETIME ONE Stop: 09/01/18 14:17 Last Admin: 09/01/18 14:23 Dose: 30 mg Prochlorperazine Maleate (Compazine) 10 mg PO ONETIME ONE Stop: 09/01/18 16:02 Last Admin: 09/01/18 16:09 Dose: 10 mg - Exam General: Alert, Oriented HEENT: Mucous Membr. Moist/[place], Other (admits to frontal sinus pressure with palpation) Neck: Supple Lungs: Clear to Auscultation, Normal Respiratory Effort Cardiovascular: Regular Rate, Regular Rhythm GI/Abdominal Exam: Normal Bowel Sounds, Soft, Non-Tender Extremities: Normal Inspection, No Pedal Edema Skin: Warm, Dry Neurological: No New Focal Deficit - Problem List & Annotations (1) Migraine SNOMED Code(s): 02265087 Code(s): G43.909 - MIGRAINE, UNSP, NOT INTRACTABLE, WITHOUT STATUS MIGRAINOSUS Status: Acute Priority: High Current Visit: Yes Qualifiers: Migraine type: without aura Intractability: intractable (2) Nausea and vomiting SNOMED Code(s): 49589282 Code(s): R11.2 - NAUSEA WITH VOMITING, UNSPECIFIED Status: Acute Priority : High Current Visit: Yes Qualifiers: Vomiting type: unspecified Vomiting Intractability: unspecified Qualified Code(s): R11.2 - Nausea with vomiting, unspecified (3) Sinusitis SNOMED Code(s): 92533253 Code(s): J32.9 - CHRONIC SINUSITIS, UNSPECIFIED Status: Acute Priority: Medium Current Visit: Yes Qualifiers: Sinusitis location: frontal Chronicity: subacute Qualified Code(s): J01.10 - Acute frontal sinusitis, unspecified - Problem List Review Problem List Initiated/Reviewed/Updated: Yes - My Orders Last 24 Hours: My Active Orders 09/02/18 08:56 Codeine/Promethazine [Phenergan with Codeine] 10 ml PO Q6H PRN 09/02/18 09:00 Doxycycline Monohydrate [Doxycycline Monohydrate] 100 mg PO BID - Assessment Assessment:: Migraine Sinusitis Nausea/vomiting - Plan Plan:: Patient still continues to have persisting frontal headache. Does feel it is somewhat better than at admission time. Relates sinus pressure has eased some, now draining. Drainage has been relatively clear. Continues to have persisting nausea which is essentially a chronic problem for her. Currently getting Zofran for this. No vomiting. Did tolerate oral intake this am for breakfast. WBC done low at 3.6, potassium 3.4, CRP 1.[address] of the head was done which was unremarkable. Will continue with IV Zofran for nausea, toradol for headaches. Resume use of her doxycycline. Anticipate discharge home tomorrow.
[2018-09-02] MEDS: DOXYCYCLINE MONOHYDRATE 100 MG PO SCH ×2 (09:38→20:34)
[2018-09-02] MEDS: Sodium Chloride 0.9% 1,000 ML IV SCH ×3 (10:07→20:34)
[2018-09-03] MEDS: DOXYCYCLINE MONOHYDRATE 100 MG PO SCH (07:38)
[2018-09-03] MEDS: **PTOM** Pantoprazole 40 MG Tab.CR PO SCH (07:39)
[2018-09-03 07:53] VITALS: BP 153/80
--- NOTE | 2018-09-03 08:37 | PCM.DCSUM1 ---
Discharge Summary - Hospital Course Free Text/Narrative:: Angie presented to ER with severe headache, nausea and vomiting. Had been seen in clinic by Dr. Shah and myself in ER prior to this fo Was started on Doxycycline for bronchitis. Was given a liter of fluids, Rocephin and Toradol with first presentation to ER. She went home and slept but over the morning her headache got worse and worse. Does have a history of migraine headaches with associated emesis. CT scan was negative. Labs all normal. Admitted for IV fluids, pain meds and meds for nausea. Diagnosis: Stroke: No Modified [place] Scale: No Symptoms at All Modified Reed Scale Score: 0 - Discharge Data Discharge Date: 09/03/18 Discharge Disposition: Home, Self-Care 01 Condition: Good - Discharge Diagnosis/Problem(s) (1) Migraine SNOMED Code(s): 41771629 ICD Code: G43.909 - MIGRAINE, UNSP, NOT INTRACTABLE, WITHOUT STATUS MIGRAINOSUS Status: Acute Priority: High Current Visit: Yes Qualifiers: Migraine type: without aura Intractability: intractable (2) Nausea and vomiting SNOMED Code(s): 68115145 ICD Code: R11.2 - NAUSEA WITH VOMITING, UNSPECIFIED Status: Acute Priority: High Current Visit: Yes Qualifiers: Vomiting type: unspecified Vomiting Intractability: unspecified Qualified Code(s): R11.2 - Nausea with vomiting, unspecified (3) Sinusitis SNOMED Code(s): 28548464 ICD Code: J32.9 - CHRONIC SINUSITIS, UNSPECIFIED Status: Acute Priority: Medium Current Visit: Yes Qualifiers: Sinusitis location: frontal Chronicity: subacute Qualified Code(s): J01.10 - Acute frontal sinusitis, unspecified - Patient Summary/Data Complications: none Hospital Course: Patient has had overall improvement. Continues to have sinus congestion and a mild cough. Headache has improved. States still has frontal pressure but not as intense as it had been. Temp last evening 99.9. Appetite is good. Has been up and ambulating in the halls. Did get a good night of sleep last night. Will discharge home with prometh with codeine. Continue course of Doxycycline. Follow up with Dr. Shah in 10 days - Patient Instructions Diet: Usual Diet as Tolerated Activity: As Tolerated - Discharge Plan *PRESCRIPTION DRUG MONITORING PROGRAM REVIEWED*: No *COPY OF PRESCRIPTION DRUG MONITORING REPORT IN PATIENT SALMA: No Prescriptions/Med Rec: Codeine/Promethazine [Phenergan with Codeine] 10 ml PO Q6H PRN #180 cup PRN Reason: Cough Doxycycline Monohydrate [Doxycycline Monohydrate] 100 mg PO BID #16 Home Medications: Home Meds Zolpidem [Ambien] 10 mg PO BEDTIME 01/07/14 [History] Methocarbamol 750 mg PO TID PRN 02/09/18 [History] SUMAtriptan [Imitrex] 50 mg PO ASDIRECTED 02/09/18 [History] Pantoprazole Sodium 40 mg PO DAILY 07/01/18 [History] Promethazine HCl 25 mg PO TID 07/01/18 [History] Doxycycline Monohydrate 100 mg PO BID 09/01/18 [History] Codeine/Promethazine [Phenergan with Codeine] 10 ml PO Q6H PRN #180 cup [Rx] Doxycycline Monohydrate [Doxycycline Monohydrate] 100 mg PO BID #16 09/03/18 [Rx ] Oxygen Therapy Mode: Nasal Cannula Forms: ED Department Discharge Referrals: Trevor Shah MD [Primary Care Provider] - (Follow up with Dr. Shah in 10 days) - Discharge Summary/Plan Comment DC Time >30 min.: No - General Info Date of Service: 09/03/18 Admission Dx/Problem (Free Text: Migraine Nausea/vomiting Functional Status: Reports: Pain Controlled, Tolerating Diet, Ambulating - Review of Systems General: Reports: Fever, Weakness, Fatigue, Malaise HEENT: Reports: Sinus Congestion, Rhinitis. Denies: Ear Pain Pulmonary: Reports: Cough. Denies: Shortness of Breath Cardiovascular: Denies: Chest Pain, Edema, Lightheadedness Gastrointestinal: Denies: Abdominal Pain, Nausea, Vomiting Genitourinary: Reports: No Symptoms Musculoskeletal: Reports: No Symptoms Skin: Reports: No Symptoms Neurological: Reports: No Symptoms - Patient Data Vitals - Most Recent: Last Vital Signs Temp 98.7 F 09/03/18 07:52 Pulse 63 09/03/18 07:52 Resp 20 09/03/18 07:52 BP 153/80 H 09/03/18 07:52 Pulse Ox 95 09/03/18 07:52 Weight - Most Recent: 187 lb 1.6 oz I&O - Last 24 hours: Intake & Output 09/02/18 09/03/18 09/03/18 22:59 06:59 14:59 Intake Total 1304 Balance 1304 Med Orders - Current: Current Medications Diphenhydramine HCl (Benadryl) 12.5 mg IVPUSH Q6H PRN PRN Reason: Headache Promethazine HCl 12.5 mg/ (Sodium Chloride) 50.5 mls @ 100 mls/hr IV Q6H PRN PRN Reason: Nausea/Vomiting Sodium Chloride (Normal Saline) 1,000 mls @ 125 mls/hr IV ASDIRECTED [facility] Last Admin: 09/02/18 20:34 Dose: 125 mls/hr Ketorolac Tromethamine (Toradol) 15 mg IVPUSH Q8H PRN PRN Reason: Headache Stop: 09/06/18 17:37 Last Admin: 09/02/18 07:42 Dose: 15 mg Ptom Doxycycline (Monohydrate 100 Mg) 100 mg PO BID [facility] Last Admin: 09/03/18 07:38 Dose: 100 mg Pantoprazole Sodium (Protonix) 40 mg PO DAILY [facility] Last Admin: 09/03/18 07:39 Dose: 40 mg Prochlorperazine Maleate (Compazine) 10 mg PO Q8H PRN PRN Reason: headache Promethazine HCl/Codeine (Phenergan With Codeine) 10 ml PO Q6H PRN PRN Reason: Cough Last Admin: 09/02/18 15:14 Dose: 10 ml Discontinued Medications Diphenhydramine HCl (Benadryl) 25 mg IVPUSH ONETIME ONE Stop: 09/01/18 16:02 Last Admin: 09/01/18 16:08 Dose: 25 mg Sodium Chloride (Normal Saline) 250 mls @ 150 mls/hr IV ASDIRECTED [facility] Sodium Chloride (Normal Saline) Confirm Administered Dose 250 mls @ as directed .ROUTE .STK-MED ONE Stop: 09/01/18 13:48 Last Admin: 09/01/18 13:46 Dose: Not Given Sodium Chloride (Normal Saline) 250 mls @ 150 mls/hr IV ASDIRECTED [facility] Last Admin: 09/01/18 16:08 Dose: 150 mls/hr Ondansetron HCl 8 mg/ Sodium (Chloride) 54 mls @ 100 mls/hr IV NOW STA Stop: 09/01/18 14:48 Last Admin: 09/01/18 14:22 Dose: 100 mls/hr Ketorolac Tromethamine (Toradol) 30 mg IVPUSH ONETIME ONE Stop: 09/01/18 14:17 Last Admin: 09/01/18 14:23 Dose: 30 mg Prochlorperazine Maleate (Compazine) 10 mg PO ONETIME ONE Stop: 09/01/18 16:02 Last Admin: 09/01/18 16:09 Dose: 10 mg - Exam General: Reports: Alert, Oriented HEENT: Reports: Mucous Membr. Moist/[place] Neck: Reports: Supple Lungs: Reports: Clear to Auscultation, Normal Respiratory Effort Cardiovascular: Reports: Regular Rate, Regular Rhythm GI/Abdominal Exam: Normal Bowel Sounds, Soft, Non-Tender Extremities: Normal Inspection, No Pedal Edema Skin: Reports: Warm, Dry Neurological: Reports: No New Focal Deficit
== END 2018-09-03 09:45 | disposition home or self-care (01) ==
LOC: CC.ED 12:51 → UNDOADMOB 17:00 → CC.MS 17:00
PROVIDERS: ADMIT Physician Assistant Medical; ATTEND Family Medicine
DX: G43.909 Migraine, unspecified, not intractable, without status migrainosus (principal); J01.10 Acute frontal sinusitis, unspecified; R11.2 Nausea with vomiting, unspecified; I10 Essential (primary) hypertension; M19.90 Unspecified osteoarthritis, unspecified site; K59.09 Other constipation; Z79.899 Other long term (current) drug therapy; Z88.5 Allergy status to narcotic agent
CPT/HCPCS: 36415; 70450; 80053; 85025; 85651; 86140; 87804; 96360; 96361; 96365; 96374; 96375; 99283-25; 99285-25; A9270-GY; J0696; J1200; J1885; J2405; J7030; J7050; J7120; Q0164

== ENCOUNTER 2020-05-05 21:50 | Emergency (ER) | payer BC ==
[2020-05-05] MEDS: Ondansetron 4 MG/2 ML SDV IVPUSH STA (21:33)
[2020-05-05] MEDS: Promethazine 12.5 MG in Sodium Chloride 0.9% 50 ML IV PRN (22:23)
[2020-05-05] MEDS: Morphine 4 MG/ML VIAL IVPUSH ONE (22:24)
[2020-05-05] MEDS: Ondansetron 4 MG/2 ML SDV ONE (22:24)
--- NOTE | 2020-05-05 22:24 | EDM.PDOC ---
ED HPI GENERAL MEDICAL PROBLEM - General Chief Complaint: Abdominal Pain Stated Complaint: abd pain Time Seen by Provider: 05/05/20 22:07 Source of Information: Reports: Patient, EMS, RN History Limitations: Reports: Uncooperative - History of Present Illness INITIAL COMMENTS - FREE TEXT/NARRATIVE: This patient is a 59 year old female that presents to the ER via EMS. EMS report s they responded to patient house, she would not talk to them and had on scene time of 30 minutes due to patient being uncooperative. When I enter the room patient is sitting on bedside toilet, was incontinent of feces, feces up her back. She has her head down between her knees bending over while on the toilet. Patient is yelling and screaming "help me". She is crying loudly. She is hyperventilating, anxious. I started by asking her questions, which she will not answer and is uncooperative. She will not sit up for me to examine her initially. She then starts dry heaving during question taking. I then told the patient I do not now how to help her if she can not tell me her reason for being here. I told her she had to tell me what was going on, I told her to slow her breathing. At that time, she slowed her breathing, stopped her dry heaving and answered my questions. She also sat back and allowed me to examine her. She reports she was seen in clinic today for elevated BP, she was started on an antidepressant today. She reports earlier today having nausea and 1 episode of diarrhea. She reports then 2 hours ago having dry heaving and 3 episodes of watery diarrhea. She reports she has vomited x1. I reviewed patient labs done earlier today from clinic, which appear unremarkable. Will repeat and add to ensure no significant changes. She was given Zofran ODT by the RN prior to my arrival to the ER. I will order her Phenergan IV. Onset: Today Onset Date: 05/05/20 Onset Time: 20:00 Duration: Hour(s): (2) Location: Reports: Abdomen Quality: Reports: Sharp, Stabbing Severity: Severe Improves with: Reports: None Worsens with: Reports: None Associated Symptoms: Reports: Headaches, Loss of Appetite, Nausea/Vomiting. Denies: Confusion, Chest Pain, Cough, cough w sputum, Diaphoresis, Fever/Chills, Malaise, Rash, Seizure, Shortness of Breath, Syncope, Weakness Lower Abdomen Pain Score (Numeric/FACES): 7 - Related Data Allergies Allergy/AdvReac Type Severity Reaction Status Date / Time oxycodone HCl [From Percocet] AdvReac Dizziness Verified 09/01/18 04:43 Home Meds: Home Meds Zolpidem [Ambien] 10 mg PO BEDTIME 01/07/14 [History] SUMAtriptan [Imitrex] 50 mg PO ASDIRECTED 02/09/18 [History] methocarbamoL [Methocarbamol] 750 mg PO TID PRN 02/09/18 [History] Pantoprazole Sodium 40 mg PO DAILY 07/01/18 [History] Promethazine HCl 25 mg PO TID 07/01/18 [History] Metoclopramide HCl [Reglan] 10 mg PO Q6H PRN #16 tablet 05/05/20 [Rx] lisinopriL [Lisinopril] 10 mg PO DAILY 05/05/20 [History] Past Medical History HEENT History: Reports: Other (See Below) Other HEENT History: [place] Cardiovascular History: Reports: Hypertension Gastrointestinal History: Reports: Chronic Constipation Genitourinary History: Reports: None RN HOMECARE History: Reports: Musculoskeletal History: Reports: Arthritis Neurological History: Reports: Migraines - Infectious Disease History Infectious Disease History: Reports: Hepatitis B - Past Surgical History HEENT Surgical History: Reports: None Cardiovascular Surgical History: Reports: None GI Surgical History: Reports: Cholecystectomy, Colonoscopy Female Surgical History: Reports: Hysterectomy, Tubal Ligation Other Female Surgeries/Procedures: bladder repair Neurological Surgical History: Reports: None Musculoskeletal Surgical History: Reports: Carpal Tunnel, Other (See Below) Other Musculoskeletal Surgeries/Procedures:: hammer toe repair. Bilateral carpal tunnel Social & Family History - Family History Family Medical History: No Pertinent Family History - Tobacco Use Tobacco Use Status *Q: Never Tobacco User - Caffeine Use Caffeine Use: Reports: Coffee - Recreational Drug Use Recreational Drug Use: No ED ROS GENERAL - Review of Systems Review Of Systems: See Below Constitutional: Reports: Malaise HEENT: Reports: No Symptoms Respiratory: Reports: No Symptoms Cardiovascular: Reports: No Symptoms Endocrine: Reports: No Symptoms GI/Abdominal: Reports: Abdominal Pain, Diarrhea, Decreased Appetite, Nausea, Vomiting : Reports: No Symptoms Musculoskeletal: Reports: No Symptoms Skin: Reports: No Symptoms Neurological: Reports: Headache Psychiatric: Reports: Anxiety Hematologic/Lymphatic: Reports: No Symptoms Immunologic: Reports: No Symptoms ED EXAM, GI/ABD - Physical Exam Exam: See Below Exam Limited By: Uncooperative General Appearance: Anxious, Moderate Distress, Obese, Other (Sitting on the bedside toilet, in a position with head between knees. She is hyperventilating, uncooperative, crying, screaming "help me". She is dryheaving, no acitve vomit. She has BM loose stool with feces up her back. ) Eyes: Bilateral: Normal Appearance Ears: Normal External Exam, Normal Canal, Hearing Grossly Normal, Normal TMs Nose: Normal Inspection, Normal Mucosa, No Blood Throat/Mouth: Normal Inspection, Normal Lips, Normal Teeth, Normal Gums, Normal Oropharynx, Normal Voice, No Airway Compromise Head: Atraumatic, Normocephalic Neck: Normal Inspection, Supple, Non-Tender, Full Range of Motion Respiratory/Chest: No Respiratory Distress, Lungs Clear, Normal Breath Sounds, No Accessory Muscle Use, Other (Hyperventilating) Cardiovascular: Normal Peripheral Pulses, Regular Rate, Rhythm, No Edema, No Gallop, No JVD, No Murmur, No Rub GI/Abdominal Exam: Soft, No Distention, Tender (umbilical/epigastric) (Female) Exam: Deferred Rectal (Female) Exam: Deferred Back Exam: Normal Inspection. No: CVA Tenderness (L), CVA Tenderness (R) Extremities: Normal Inspection, Normal Range of Motion, Non-Tender, No Pedal Edema, Normal Capillary Refill Neurological: Alert, Oriented, Normal Cognition, No Motor/Sensory Deficits Psychiatric: Anxious, Tearful, Other (crying, screaming "help me, im scared". uncooperative during exam. ) Skin Exam: Warm, Dry, Intact, Normal Color, No Rash Lymphatic: No Adenopathy #1 Interpretation EKG Date: 05/05/20 Time: 23:01 Rhythm: NSR Rate (Beats/Min): 71 [place]: Normal P-Wave: Present ST-T: Normal Comparison: NA - No Prior EKG Course - Vital Signs Last Recorded V/S: Last Vital Signs Temp 97.0 F 05/05/20 23:03 Pulse 75 05/05/20 23:03 Resp 16 05/05/20 23:03 BP 140/63 05/05/20 23:03 Pulse Ox 100 05/05/20 23:03 - Orders/Labs/Meds Orders: Active Orders 24 hr Category Date Time Status Cardiac Monitoring [RC] . DIRECTED Care 05/05/20 22:17 Active Abdomen Pelvis w Cont [CT] Stat Exams 05/05/20 22:16 Taken Promethazine [Phenergan] 12.5 mg Med 05/05/20 22:13 Active Sodium Chloride 0.9% [Normal Saline] 50 ml IV Q6H Sodium Chloride 0.9% [Normal Saline] 1,000 ml Med 05/05/20 22:50 Active IV .BOLUS Isolation [COMM] Routine Oth 05/05/20 22:19 Active Medication Orders Promethazine HCl 12.5 mg/ (Sodium Chloride) 50.5 mls @ 100 mls/hr IV Q6H PRN PRN Reason: Nausea/Vomiting Last Admin: 05/05/20 22:23 Dose: 100 mls/hr Documented by: MICHAEL Sodium Chloride (Normal Saline) 1,000 mls @ 1,000 mls/hr IV .BOLUS ONE Stop: 05/05/20 23:49 Last Admin: 05/05/20 22:59 Dose: 1,000 mls/hr Documented by: MICHAEL Labs: Laboratory Tests 05/05/20 05/05/20 05/05/20 Range/Units 22:17 22:17 22:19 WBC (5.0-10.0) 10^3/uL RBC (4.00-5.50) 10^6/uL Hgb (12.0-16.0) g/dL Hct (37.0-47.0) % MCV (82.0-94.0) fL MCH (27.0-32.0) pg MCHC (33.0-38.0) g/dL RDW Coeff of Myra (11.0-15.0) % Plt Count (150-400) 10^3/uL Neut % (Auto) (35-85) % Lymph % (Auto) (10-55) % [place] % (Auto) (0-16) % Eos % (Auto) (0-5) % Baso % (Auto) (0-3) % Neut # (Auto) (1.80-7.00) 10^3/uL Lymph # (Auto) (1.00-4.80) 10^3/uL [place] # (Auto) (0.00-0.80) 10^3/uL Eos # (Auto) (0.00-0.45) 10^3/uL Baso # (Auto) 10^3/uL Sodium (136-145) mEq/L Potassium (3.5-5.0) mEq/L Chloride (98-106) mEq/L Carbon Dioxide (21-32) mmol/L BUN (7-18) mg/dL Creatinine (0.6-1.0) mg/dL Est Cr Clr Drug Dosing mL/min Estimated GFR (MDRD) (>=60) mL/min Glucose (75-99) mg/dL Lactic Acid (0.4-2.0) mmol/L Calcium (8.4-10.1) mg/dL Total Bilirubin (0.0-1.0) mg/dL AST (15-37) U/L ALT (12-78) U/L Alkaline Phosphatase (46-116) U/L Creatine Kinase (21-215) U/L Troponin I (0.00-0.06) ng/mL Total Protein (6.4-8.2) g/dL Albumin (3.4-5.0) g/dL Amylase (25-115) U/L Lipase (73-393) U/L Urine Color Yellow (YELLOW) Urine Appearance Clear (CLEAR) Urine pH 5.5 (4.5-8.0) Ur Specific [place] 1.020 (1.003-1.020) Urine Protein Negative (NEGATIVE) mg/dL Urine Glucose (UA) Negative (NEGATIVE) mg/dL Urine Ketones Trace H (NEGATIVE) mg/dL Urine Occult Blood Trace-intact H (NEGATIVE) Urine Nitrite Negative (NEGATIVE) Urine Bilirubin Negative (NEGATIVE) Urine Urobilinogen 0.2 (0.2-1.0) EU/dL Ur Leukocyte Esterase Negative (NEGATIVE) Urine RBC 0-5 (0-5) /HPF Urine WBC 0-5 (0-5) /HPF Ur Epithelial Cells Rare (NOT SEEN) /HPF Urine Bacteria Occasional H (NOT SEEN) /HPF Urine Mucus Rare (NOT SEEN) /HPF Urine Opiates Screen Positive H (NEGATIVE) Ur Oxycodone Screen Negative (NEGATIVE) Urine Methadone Screen Negative (NEGATIVE) Ur Barbiturates Screen Negative (NEGATIVE) U Tricyclic Antidepress Negative (NEGATIVE) Ur Phencyclidine Scrn Negative (NEGATIVE) Ur Amphetamine Screen Negative (NEGATIVE) U Methamphetamines Scrn Negative (NEGATIVE) Urine MDMA Screen Negative (NEGATIVE) U Benzodiazepines Scrn Negative (NEGATIVE) Urine Cocaine Screen Negative (NEGATIVE) U Marijuana (THC) Screen Negative (NEGATIVE) Ethyl Alcohol (0-3) mg/dL SARS CoV-2 RNA Rapid DEVANTE Negative (NEGATIVE) 05/05/20 05/05/20 05/05/20 Range/Units 22:46 22:46 22:46 WBC 12.2 H (5.0-10.0) 10^3/uL RBC 5.45 (4.00-5.50) 10^6/uL Hgb 15.5 (12.0-16.0) g/dL Hct 45.6 (37.0-47.0) % MCV 83.7 (82.0-94.0) fL MCH 28.4 (27.0-32.0) pg MCHC 34.0 (33.0-38.0) g/dL RDW Coeff of Myra 12.3 (11.0-15.0) % Plt Count 279 (150-400) 10^3/uL Neut % (Auto) 75.2 (35-85) % Lymph % (Auto) 19.7 (10-55) % [place] % (Auto) 4.2 (0-16) % Eos % (Auto) 0.7 (0-5) % Baso % (Auto) 0.2 (0-3) % Neut # (Auto) 9.13 H (1.80-7.00) 10^3/uL Lymph # (Auto) 2.39 (1.00-4.80) 10^3/uL [place] # (Auto) 0.51 (0.00-0.80) 10^3/uL Eos # (Auto) 0.09 (0.00-0.45) 10^3/uL Baso # (Auto) 0.03 10^3/uL Sodium 137 (136-145) mEq/L Potassium 3.4 L (3.5-5.0) mEq/L Chloride 98 (98-106) mEq/L Carbon Dioxide 20 L (21-32) mmol/L BUN 22 H (7-18) mg/dL Creatinine 1.2 H (0.6-1.0) mg/dL Est Cr Clr Drug Dosing 40.91 mL/min Estimated GFR (MDRD) 46 L (>=60) mL/min Glucose 237 H D (75-99) mg/dL Lactic Acid 4.9 H (0.4-2.0) mmol/L Calcium 10.0 (8.4-10.1) mg/dL Total Bilirubin 0.9 (0.0-1.0) mg/dL AST 19 (15-37) U/L ALT 32 (12-78) U/L Alkaline Phosphatase 101 (46-116) U/L Creatine Kinase 54 (21-215) U/L Troponin I < 0.017 (0.00-0.06) ng/mL Total Protein 8.3 H (6.4-8.2) g/dL Albumin 4.2 (3.4-5.0) g/dL Amylase 70 (25-115) U/L Lipase 292 (73-393) U/L Urine Color (YELLOW) Urine Appearance (CLEAR) Urine pH (4.5-8.0) Ur Specific [place] (1.003-1.020) Urine Protein (NEGATIVE) mg/dL Urine Glucose (UA) (NEGATIVE) mg/dL Urine Ketones (NEGATIVE) mg/dL Urine Occult Blood (NEGATIVE) Urine Nitrite (NEGATIVE) Urine Bilirubin (NEGATIVE) Urine Urobilinogen (0.2-1.0) EU/dL Ur Leukocyte Esterase (NEGATIVE) Urine RBC (0-5) /HPF Urine WBC (0-5) /HPF Ur Epithelial Cells (NOT SEEN) /HPF Urine Bacteria (NOT SEEN) /HPF Urine Mucus (NOT SEEN) /HPF Urine Opiates Screen (NEGATIVE) Ur Oxycodone Screen (NEGATIVE) Urine Methadone Screen (NEGATIVE) Ur Barbiturates Screen (NEGATIVE) U Tricyclic Antidepress (NEGATIVE) Ur Phencyclidine Scrn (NEGATIVE) Ur Amphetamine Screen (NEGATIVE) U Methamphetamines Scrn (NEGATIVE) Urine MDMA Screen (NEGATIVE) U Benzodiazepines Scrn (NEGATIVE) Urine Cocaine Screen (NEGATIVE) U Marijuana (THC) Screen (NEGATIVE) Ethyl Alcohol < 3 (0-3) mg/dL SARS CoV-2 RNA Rapid DEVANTE (NEGATIVE) Meds: Medications Generic Name Dose Route Start Last Admin Trade Name Freq PRN Reason Stop Dose Admin Promethazine HCl 12.5 mg/ 50.5 mls @ 100 mls/hr 05/05/20 22:13 05/05/20 22:23 Sodium Chloride IV 100 mls/hr Q6H PRN Administration Nausea/Vomiting Sodium Chloride 1,000 mls @ 1,000 mls/hr 05/05/20 22:50 05/05/20 22:59 Normal Saline IV 05/05/20 23:49 1,000 mls/hr .BOLUS ONE Administration Discontinued Medications Generic Name Dose Route Start Last Admin Trade Name Freq PRN Reason Stop Dose Admin Diphenhydramine HCl 12.5 mg 05/05/20 22:36 05/05/20 22:36 Benadryl IVPUSH 05/05/20 22:37 12.5 mg ONETIME ONE Administration Famotidine 20 mg 05/05/20 22:48 05/05/20 22:59 Pepcid IVPUSH 05/05/20 22:49 20 mg ONETIME ONE Administration Iopamidol 100 ml 05/05/20 22:31 05/05/20 23:06 [id number]-[id number] (76%) IVPUSH 05/05/20 22:32 100 ml ONETIME ONE Administration Metoclopramide HCl 10 mg 05/05/20 22:36 05/05/20 22:36 Reglan IVPUSH 05/05/20 22:37 10 mg ONETIME ONE Administration Metoclopramide HCl 10 mg 05/05/20 23:38 Reglan PO 05/05/20 23:39 NOW STA Metoclopramide HCl 10 mg 05/05/20 23:38 Reglan PO 05/05/20 23:39 NOW STA Morphine Sulfate 4 mg 05/05/20 22:14 05/05/20 22:24 Morphine IVPUSH 05/05/20 22:15 4 mg ONETIME ONE Administration Ondansetron HCl Confirm 05/05/20 21:33 05/05/20 22:24 Zofran Administered 05/05/20 21:34 Not Given Dose 4 mg .ROUTE .STK-MED ONE Ondansetron HCl 4 mg 05/05/20 21:33 05/05/20 21:33 Zofran IVPUSH 05/05/20 21:34 4 mg STAT STA Administration - Radiology Interpretation Free Text/Narrative:: Abd/Pelvis CT with contrast: No acute findings CT Results Date: 05/05/20 CT Results Time: 23:29 - Re-Assessments/Exams Free Text/Narrative Re-Assessment/Exam: 05/05/20 22:35 The patient after Zofran is still dry heaving. She is still on the toilet, no BM since arrival. The patient keeps bending her arm occluding the phenergan, patient uncooperative with keeping her arm straight. About 25% was given. Told RN to D/C due to patient uncooperative to get the medicine via IV infusion. Patient remains tearful, and upset. Myself and RN was able to assist patient with getting into the stretcher at this time. I then ordered Reglan and Benadryl IV. 05/05/20 22:45 Patient is upset during lab draw and crying again. She is dry heaving again with becoming upset. She was given Benadryl and Reglan, then patient relaxed for labs. Patient no longer dry heaving, she is more cooperative. Patient reports she does not feel any better, but appears more relaxed, no dry heaving, not yelling, not screaming, not crying at this time. 05/05/20 22:53 Patient was able to go to CT without difficulty. She returned and is laying in stretcher and relaxed. No dry heaves or crying. Patient now is more cooperative. 05/05/20 23:30 I believe mild elevation in wbc is related to her vomiting/dry heaves, stress, anxiety behaviors with hyperventilation. Her mild CR elevation due to her diarrhea and vomiting. Her CT is unremarkable. I will discharge the patient home with Reglan PO. She was given fluids in the ER. Educated when to return. She still remains more cooperative, not crying, not dry heaving. No BM. Patient does report she is feeling better. Departure - Departure Time of Disposition: 23:32 Disposition: Home, Self-Care 01 Condition: Fair Clinical Impression: Gastroenteritis - Discharge Information *PRESCRIPTION DRUG MONITORING PROGRAM REVIEWED*: Not Applicable *COPY OF PRESCRIPTION DRUG MONITORING REPORT IN PATIENT SALMA: Not Applicable Prescriptions: Metoclopramide HCl [Reglan] 10 mg PO Q6H PRN #16 tablet PRN Reason: Nausea/Vomiting Instructions: Viral Gastroenteritis, Adult Forms: ED Department Discharge Additional Instructions: Followup with your primary care provider for a recheck Return to the ER for worsening of condition or any emergent concerns Increase fluid intake Tylenol if fever starts Reglan 10mg 1 pill every 6 hours as needed for nausea or vomiting #2 take home #16 no refill Stop taking your antidepressant at this time until seen by your primary care provider next week and okays to restart Sepsis Event Note (ED) - Evaluation Sepsis Screening Result: No Definite Risk - Focused Exam Vital Signs: Vital Signs Temp Pulse Resp BP Pulse Ox 05/05/20 23:03 97.0 F 75 16 140/63 100 05/05/20 21:55 96.7 F L 88 18 143/88 H 100 - My Orders Last 24 Hours: My Active Orders 05/05/20 22:13 Promethazine [Phenergan] 12.5 mg Sodium Chloride 0.9% [Normal Saline] 50 ml IV Q6H 05/05/20 22:16 Abdomen Pelvis w Cont [CT] Stat 05/05/20 22:17 Cardiac Monitoring [RC] . DIRECTED 05/05/20 22:19 Isolation [COMM] Routine 05/05/20 22:50 Sodium Chloride 0.9% [Normal Saline] 1,000 ml IV .BOLUS - Assessment/Plan Last 24 Hours: My Active Orders 05/05/20 22:13 Promethazine [Phenergan] 12.5 mg Sodium Chloride 0.9% [Normal Saline] 50 ml IV Q6H 05/05/20 22:16 Abdomen Pelvis w Cont [CT] Stat 05/05/20 22:17 Cardiac Monitoring [RC] . DIRECTED 05/05/20 22:19 Isolation [COMM] Routine 05/05/20 22:50 Sodium Chloride 0.9% [Normal Saline] 1,000 ml IV .BOLUS Plan: PLEASE SEE RN NOTE FOR PFSH
[2020-05-05] MEDS: Metoclopramide 10 MG/2 ML SDV IVPUSH ONE (22:36)
[2020-05-05] MEDS: diphenhydrAMINE 50 MG/ML SDV IVPUSH ONE (22:36)
[2020-05-05] MEDS: Famotidine 20 MG/2 ML SDV IVPUSH ONE (22:59)
[2020-05-05] MEDS: Sodium Chloride 0.9% 1,000 ML IV ONE (22:59)
[2020-05-05 23:05] VITALS: BP 140/63; PULSE 75
[2020-05-05] MEDS: Iopamidol 755 Mg/ML 100 ML Bottle IVPUSH ONE (23:06)
[2020-05-05 23:11] LABS: CHLORIDE,CL 98 mEq/L (98-106); SODIUM,NA 137 mEq/L (136-145)
[2020-05-05] MEDS: Metoclopramide 10 MG Tab PO STA ×2 (23:54)
== END 2020-05-06 00:10 | disposition home or self-care (01) ==
LOC: CC.ED 21:50
DX: K52.9 Noninfective gastroenteritis and colitis, unspecified (principal); R06.4 Hyperventilation; I10 Essential (primary) hypertension; Z90.49 Acquired absence of other specified parts of digestive tract; Z90.710 Acquired absence of both cervix and uterus; Z98.51 Tubal ligation status; Z20.828 Contact with and (suspected) exposure to other viral communicable diseases; Z88.5 Allergy status to narcotic agent; Z79.899 Other long term (current) drug therapy
CPT/HCPCS: 36415; 74177; 80053; 80305-QW; 80307; 81001; 82150; 82550; 83605; 83690; 84484; 85025; 87804; 93005; 96365; 96375; 99284-25; A9270-GY; J1200; J2270; J2405; J2550; J2765; J3490; J7030; Q9967; U0002

== ENCOUNTER 2020-07-26 15:43 | Emergency (ER) | payer BC ==
[2020-07-26] MEDS ORDERED: Ondansetron 4 MG/2 ML SDV IVPUSH PRN (16:12)
[2020-07-26] MEDS ORDERED: Sodium Chloride 0.9% 1,000 ML IV SCH (16:15)
[2020-07-26] MEDS ORDERED: Promethazine 25 MG in Sodium Chloride 0.9% 100 ML IV ONE (16:42)
--- NOTE | 2020-07-26 16:48 | EDM.PDOC ---
<BrandonJuaniNatalie D - Last Filed: 07/26/20 16:43> ED HPI GENERAL MEDICAL PROBLEM - General Chief Complaint: Gastrointestinal Problem Stated Complaint: ABD PAIN/N/V Time Seen by Provider: 07/26/20 16:15 Source of Information: Reports: Patient History Limitations: Reports: No Limitations - History of Present Illness INITIAL COMMENTS - FREE TEXT/NARRATIVE: Patient presents to ER with complaints of nausea/vomiting and diarrhea. Did go to work this am and then diarrhea started. At 3 pm, vomiting began. Has been retching since arrival here and stools are loose and incontinent. Last meal was at 0500 when she had a bowl of cereal. 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 Admits abdomen is sore but no severe pain. Onset: Today, Sudden Duration: Hour(s): Location: Reports: Abdomen Quality: Reports: Ache Severity: Mild Associated Symptoms: Reports: Malaise, Nausea/Vomiting, Weakness. Denies: Confusion, Chest Pain, Cough, Fever/Chills, Headaches, Loss of Appetite, Rash, Shortness of Breath Abdominal Pain Score (Numeric/FACES): 7 - Related Data Allergies Allergy/AdvReac Type Severity Reaction Status Date / Time oxycodone HCl [From Percocet] AdvReac Dizziness Verified 09/01/18 04:43 Home Meds: Home Meds Zolpidem [Ambien] 10 mg PO BEDTIME 01/07/14 [History] SUMAtriptan [Imitrex] 50 mg PO ASDIRECTED 02/09/18 [History] methocarbamoL [Methocarbamol] 750 mg PO TID PRN 02/09/18 [History] lisinopriL [Lisinopril] 10 mg PO DAILY 05/05/20 [History] Ondansetron [Zofran Odt] 8 mg PO Q6H PRN 07/26/20 [History] Past Medical History HEENT History: Reports: Other (See Below) Other HEENT History: [place] Cardiovascular History: Reports: Hypertension Gastrointestinal History: Reports: Chronic Constipation Genitourinary History: Reports: None 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: Musculoskeletal History: Reports: Arthritis Neurological History: Reports: Migraines - Infectious Disease History Infectious Disease History: Reports: Hepatitis B - Past Surgical History HEENT Surgical History: Reports: None Cardiovascular Surgical History: Reports: None GI Surgical History: Reports: Cholecystectomy, Colonoscopy Female Surgical History: Reports: Hysterectomy, Tubal Ligation Other Female Surgeries/Procedures: bladder repair Neurological Surgical History: Reports: None Musculoskeletal Surgical History: Reports: Carpal Tunnel, Other (See Below) Other Musculoskeletal Surgeries/Procedures:: hammer toe repair. Bilateral carpal tunnel Social & Family History - Family History Family Medical History: No Pertinent Family History - Tobacco Use Tobacco Use Status *Q: Never Tobacco User - Caffeine Use Caffeine Use: Reports: None - Recreational Drug Use Recreational Drug Use: No ED ROS GENERAL - Review of Systems Review Of Systems: See Below Constitutional: Reports: Malaise, Weakness, Fatigue. Denies: Fever, Chills HEENT: Denies: Ear Pain, Rhinitis, Throat Pain, Other Respiratory: Denies: Shortness of Breath, Cough Cardiovascular: Denies: Chest Pain, Edema, Lightheadedness Endocrine: Reports: Fatigue GI/Abdominal: Reports: Abdominal Pain, Diarrhea, Nausea, Stool Incontinence, Vomiting : Reports: No Symptoms Musculoskeletal: Reports: No Symptoms Skin: Reports: No Symptoms Neurological: Reports: Weakness ED EXAM, GI/ABD - Physical Exam Exam: See Below Exam Limited By: No Limitations General Appearance: Alert, WD/WN, Moderate Distress Ears: Normal External Exam, Normal TMs Nose: Normal Inspection, Normal Mucosa, No Blood Throat/Mouth: Normal Inspection, Normal Oropharynx Head: Normocephalic Neck: Normal Inspection, Supple, Non-Tender Respiratory/Chest: No Respiratory Distress, Lungs Clear, Normal Breath Sounds Cardiovascular: Regular Rate, Rhythm GI/Abdominal Exam: Normal Bowel Sounds, Soft, Non-Tender Neurological: Alert, Oriented Skin Exam: Warm, Other (clammy) Departure - Departure Disposition: Home, Self-Care 01 Clinical Impression: Gastroenteritis - Discharge Information Instructions: Viral Gastroenteritis, Adult, [id number] Forms: ED Department Discharge Additional Instructions: push fluids use the zofran that you have at home as needed recheck in the clinic as needed. Sepsis Event Note (ED) - Evaluation Sepsis Screening Result: No Definite Risk <Ayaka Shen - Last Filed: 07/26/20 21:08> Course - Vital Signs Last Recorded V/S: Last Vital Signs Temp 98.4 F 07/26/20 19:29 Pulse 96 07/26/20 19:29 Resp 16 07/26/20 19:29 BP 134/67 07/26/20 19:29 Pulse Ox 100 07/26/20 19:29 - Orders/Labs/Meds Orders: Active Orders 24 hr Category Date Time Status Abdomen 2V AP Flat Upright [CR] Stat Exams 07/26/20 16:10 Ordered Ondansetron [Zofran] Med 07/26/20 16:12 Active 4 mg IVPUSH Q6H PRN Sodium Chloride 0.9% [Normal Saline] 1,000 ml Med 07/26/20 16:15 Active IV ASDIRECTED Medication Orders Sodium Chloride (Normal Saline) 1,000 mls @ 250 mls/hr IV ASDIRECTED ALEE Last Admin: 07/26/20 16:18 Dose: 250 mls/hr Documented by: TYLER Ondansetron HCl (Zofran) 4 mg IVPUSH Q6H PRN PRN Reason: Nausea Last Admin: 07/26/20 16:18 Dose: 4 mg Documented by: TYLER Labs: Laboratory Tests 07/26/20 07/26/20 07/26/20 Range/Units 16:45 16:45 16:45 WBC 16.1 H (5.0-10.0) 10^3/uL RBC 5.88 H (4.00-5.50) 10^6/uL Hgb 16.9 H (12.0-16.0) g/dL Hct 49.6 H (37.0-47.0) % MCV 84.4 (82.0-94.0) fL MCH 28.7 (27.0-32.0) pg MCHC 34.1 (33.0-38.0) g/dL RDW Coeff of Myra 13.1 (11.0-15.0) % Plt Count 256 (150-400) 10^3/uL Neut % (Auto) 89.6 H (35-85) % Lymph % (Auto) 5.0 L (10-55) % Lynn % (Auto) 4.8 (0-16) % Eos % (Auto) 0.5 (0-5) % Baso % (Auto) 0.1 (0-3) % Neut # (Auto) 14.44 H (1.80-7.00) 10^3/uL Lymph # (Auto) 0.80 L (1.00-4.80) 10^3/uL Lynn # (Auto) 0.77 (0.00-0.80) 10^3/uL Eos # (Auto) 0.08 (0.00-0.45) 10^3/uL Baso # (Auto) 0.02 10^3/uL Sodium 139 (136-145) mEq/L Potassium 3.9 (3.5-5.0) mEq/L Chloride 101 (98-106) mEq/L Carbon Dioxide 24 (21-32) mmol/L BUN 20 H (7-18) mg/dL Creatinine 0.9 (0.6-1.0) mg/dL Est Cr Clr Drug Dosing 53.89 mL/min Estimated GFR (MDRD) > 60 (>=60) mL/min Glucose 161 H D (75-99) mg/dL Calcium 9.8 (8.4-10.1) mg/dL Total Bilirubin 1.2 H (0.0-1.0) mg/dL AST 28 (15-37) U/L ALT 60 (12-78) U/L Alkaline Phosphatase 127 H (46-116) U/L C-Reactive Protein 0.7 (0.2-0.8) mg/dL Total Protein 8.5 H (6.4-8.2) g/dL Albumin 4.0 (3.4-5.0) g/dL Urine Color Dark yellow (YELLOW) Urine Appearance Clear (CLEAR) Urine pH 5.0 (4.5-8.0) Ur Specific [place] >= 1.030 H (1.003-1.020) Urine Protein Negative (NEGATIVE) mg/dL Urine Glucose (UA) Negative (NEGATIVE) mg/dL Urine Ketones Negative (NEGATIVE) mg/dL Urine Occult Blood Negative (NEGATIVE) Urine Nitrite Negative (NEGATIVE) Urine Bilirubin Negative (NEGATIVE) Urine Urobilinogen 0.2 (0.2-1.0) EU/dL Ur Leukocyte Esterase Negative (NEGATIVE) Meds: Medications Generic Name Dose Route Start Last Admin Trade Name Freq PRN Reason Stop Dose Admin Sodium Chloride 1,000 mls @ 250 mls/hr 07/26/20 16:15 07/26/20 16:18 Normal Saline IV 250 mls/hr ASDIRECTED ALEE Administration Ondansetron HCl 4 mg 07/26/20 16:12 07/26/20 16:18 Zofran IVPUSH 4 mg Q6H PRN Administration Nausea Discontinued Medications Generic Name Dose Route Start Last Admin Trade Name Velasquez PRN Reason Stop Dose Admin Promethazine HCl 25 mg/ Sodium 101 mls @ 400 mls/hr 07/26/20 16:42 07/26/20 17:06 Chloride IV 07/26/20 16:57 400 mls/hr ONETIME ONE Administration - Re-Assessments/Exams Free Text/Narrative Re-Assessment/Exam: 07/26/20 21:04 Iv fluids are infused and she is feeling better and has been sleeping. Nausea has improved. Will discharge her at this time. She has zofran at home that she can use. Departure - Departure Time of Disposition: 21:05 Condition: Good - Discharge Information *PRESCRIPTION DRUG MONITORING PROGRAM REVIEWED*: Not Applicable *COPY OF PRESCRIPTION DRUG MONITORING REPORT IN PATIENT SALMA: Not Applicable Sepsis Event Note (ED) - Focused Exam Vital Signs: Vital Signs Temp Pulse Resp BP Pulse Ox 07/26/20 19:29 98.4 F 96 16 134/67 100 07/26/20 15:45 95.8 F L 115 H 20 170/109 H 99 - Problem List & Annotations (1) Gastroenteritis SNOMED Code(s): 00709859 Code(s): K52.9 - NONINFECTIVE GASTROENTERITIS AND COLITIS, UNSPECIFIED Status: Acute Priority: High Current Visit: Yes - Problem List Review Problem List Initiated/Reviewed/Updated: Yes
[2020-07-26 17:04] LABS: CHLORIDE,CL 101 mEq/L (98-106); SODIUM,NA 139 mEq/L (136-145)
[2020-07-26 19:29] VITALS: BP 134/67; PULSE 96
== END 2020-07-26 21:30 | disposition home or self-care (01) ==
LOC: CC.ED 15:43
DX: K52.9 Noninfective gastroenteritis and colitis, unspecified (principal); I10 Essential (primary) hypertension; Z79.899 Other long term (current) drug therapy; Z88.5 Allergy status to narcotic agent
CPT/HCPCS: 36415; 74019; 80053; 81003; 85025; 86140; 96365; 96375; 99284-25; J2405; J2550; J7030

== ENCOUNTER 2021-05-26 04:14 | Emergency (ER) | payer BC ==
[2021-05-26 04:24] VITALS: BP 153/88; PULSE 94
[2021-05-26] MEDS ORDERED: Sodium Chloride 0.9% 1,000 ML IV ONE (04:41)
[2021-05-26] MEDS ORDERED: Ondansetron 4 MG/2 ML SDV IVPUSH STA (04:42)
[2021-05-26] MEDS ORDERED: Ketorolac 30 MG/ML SDV IVPUSH ONE (04:43)
--- NOTE | 2021-05-26 04:50 | EDM.PDOC ---
ED HPI GENERAL MEDICAL PROBLEM - General Chief Complaint: General Stated Complaint: migraine Time Seen by Provider: 05/26/21 04:35 Source of Information: Reports: Patient History Limitations: Reports: No Limitations - History of Present Illness INITIAL COMMENTS - FREE TEXT/NARRATIVE: This is a 60 year old female that presents to the ED with complaints of migraine headache. States she began to have a headache that began yesterday and became worse overnight. She did use her prescribed Imitrex, was in a quiet environment, and placed a cool cloth over her head. Has associated photosensitivity and sensitive to sound. Denies any changes with this headache and reports pain in unchanged from previous migraines. Patient denies any fever, chills, body aches, or other signs of illness. Reports history of constipation that she has been using her medications for that, but she said "that has been a problem for awhile." Reports to taking stool softeners and other medication for con stipation. Duration: Day(s): (1) Location: Reports: Head Quality: Reports: Ache, Same as Previous Episode Severity: Moderate Improves with: Reports: None Worsens with: Reports: Other (light and sound) Associated Symptoms: Reports: Nausea/Vomiting. 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) Head Pain Score (Numeric/FACES): 10 - Related Data Allergies Allergy/AdvReac Type Severity Reaction Status Date / Time oxycodone HCl [From Percocet] AdvReac Dizziness Verified 05/26/21 04:24 Home Meds: Home Meds Zolpidem [Ambien] 10 mg PO BEDTIME 01/07/14 [History] SUMAtriptan [Imitrex] 50 mg PO ASDIRECTED 02/09/18 [History] methocarbamoL [Methocarbamol] 750 mg PO TID PRN 02/09/18 [History] lisinopriL [Lisinopril] 10 mg PO DAILY 05/05/20 [History] Ondansetron [Zofran Odt] 8 mg PO Q6H PRN 07/26/20 [History] Past Medical History HEENT History: Reports: Other (See Below) Other HEENT History: [place] Cardiovascular History: Reports: Hypertension Gastrointestinal History: Reports: Chronic Constipation Genitourinary History: Reports: None 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: Musculoskeletal History: Reports: Arthritis Neurological History: Reports: Migraines - Infectious Disease History Infectious Disease History: Reports: Hepatitis B - Past Surgical History HEENT Surgical History: Reports: None Cardiovascular Surgical History: Reports: None GI Surgical History: Reports: Cholecystectomy, Colonoscopy Female Surgical History: Reports: Hysterectomy, Tubal Ligation Other Female Surgeries/Procedures: bladder repair Neurological Surgical History: Reports: None Musculoskeletal Surgical History: Reports: Carpal Tunnel, Other (See Below) Other Musculoskeletal Surgeries/Procedures:: hammer toe repair. Bilateral carpal tunnel Social & Family History - Family History Family Medical History: No Pertinent Family History - Tobacco Use Tobacco Use Status *Q: Never Tobacco User - Caffeine Use Caffeine Use: Reports: Soda ED ROS GENERAL - Review of Systems Review Of Systems: Comprehensive ROS is negative, except as noted in HPI. ED EXAM, GENERAL - Physical Exam Exam: See Below Exam Limited By: No Limitations General Appearance: Alert, WD/WN, Mild Distress Ears: Normal External Exam, Hearing Grossly Normal Nose: Normal Inspection Throat/Mouth: Normal Inspection, Normal Voice, No Airway Compromise Head: Atraumatic, Normocephalic Neck: Supple, Non-Tender Respiratory/Chest: No Respiratory Distress, Lungs Clear, Normal Breath Sounds. No: Crackles, Rales, Rhonchi Cardiovascular: Regular Rate, Rhythm, No Gallop, No Murmur, No Rub GI/Abdominal: Normal Bowel Sounds, Soft, Non-Tender (Female) Exam: Deferred Rectal (Female) Exam: Deferred Neurological: Alert, Oriented, Normal Cognition Psychiatric: Normal Affect, Normal Mood Skin Exam: Warm, Dry, Intact Course - Vital Signs Last Recorded V/S: Last Vital Signs Temp 98.2 F 05/26/21 04:21 Pulse 94 05/26/21 04:21 Resp 14 05/26/21 04:21 BP 153/88 H 05/26/21 04:21 Pulse Ox 98 05/26/21 04:21 - Orders/Labs/Meds Orders: Active Orders 24 hr Category Date Time Status Ketorolac [Toradol] Med 05/26/21 04:43 Once 30 mg IVPUSH ONETIME ONE Ondansetron [Zofran] Med 05/26/21 04:42 Stat 4 mg IVPUSH NOW STA Sodium Chloride 0.9% [Normal Saline] 1,000 ml Med 05/26/21 04:41 Ordered IV .BOLUS Medication Orders Sodium Chloride (Normal Saline) 1,000 mls @ 999 mls/hr IV .BOLUS ONE Stop: 05/26/21 05:41 Ketorolac Tromethamine (Ketorolac 30 Mg/Ml Sdv) 30 mg IVPUSH ONETIME ONE Stop: 05/26/21 04:44 Ondansetron HCl (Ondansetron 4 Mg/2 Ml Sdv) 4 mg IVPUSH NOW STA Stop: 05/26/21 04:43 Meds: Medications Generic Name Dose Route Start Last Admin Trade Name Freq PRN Reason Stop Dose Admin Sodium Chloride 1,000 mls @ 999 mls/hr 05/26/21 04:41 Normal Saline IV 05/26/21 05:41 .BOLUS ONE Ketorolac Tromethamine 30 mg 05/26/21 04:43 Ketorolac 30 Mg/Ml Sdv IVPUSH 05/26/21 04:44 ONETIME ONE Ondansetron HCl 4 mg 05/26/21 04:42 Ondansetron 4 Mg/2 Ml Sdv IVPUSH 05/26/21 04:43 NOW STA - Re-Assessments/Exams Free Text/Narrative Re-Assessment/Exam: This is a 60 year old female that presents to the ED with migraine headache with known history. Associated nausea. An IV was established and administered 1 liter of IV fluid. Toradol 30 mg administered for pain. Zofran 4 mg IVP for nausea. The patient states her pain has come down to a tolerable level and treatment is effective. Plan to discharge home after IV fluids are complete. Patient advised to use her medications as prescribed for migraine control. Encouraged to drink fluids and rest today. If symptoms worsen or not improving may return or follow-up with her primary care provider. Departure - Departure Time of Disposition: 05:21 Disposition: Home, Self-Care 01 Condition: Good Clinical Impression: Migraine Qualifiers: Migraine type: without aura Status migrainosus presence: without status migrainosus Intractability: intractable Qualified Code(s): G43.019 - Migraine without aura, intractable, without status migrainosus Nausea and vomiting Qualifiers: Vomiting type: unspecified Qualified Code(s): R11.2 - Nausea with vomiting, unspecified - Discharge Information *PRESCRIPTION DRUG MONITORING PROGRAM REVIEWED*: Not Applicable *COPY OF PRESCRIPTION DRUG MONITORING REPORT IN PATIENT SALMA: Not Applicable Instructions: Migraine Headache Referrals: PCP,None [Primary Care Provider] - Additional Instructions: 1. Take medications as previously prescribed for migraine management. 2. Drink plenty of fluids to stay hydrated. 3. Rest today. 4. Follow-up with primary care provider or return if symptoms worsen or not improving. Sepsis Event Note (ED) - Evaluation Sepsis Screening Result: No Definite Risk - Focused Exam Vital Signs: Vital Signs Temp Pulse Resp BP Pulse Ox 05/26/21 04:21 98.2 F 94 14 153/88 H 98 - My Orders Last 24 Hours: My Active Orders 05/26/21 04:41 Sodium Chloride 0.9% [Normal Saline] 1,000 ml IV .BOLUS 05/26/21 04:42 Ondansetron [Zofran] 4 mg IVPUSH NOW STA 05/26/21 04:43 Ketorolac [Toradol] 30 mg IVPUSH ONETIME ONE - Assessment/Plan Last 24 Hours: My Active Orders 05/26/21 04:41 Sodium Chloride 0.9% [Normal Saline] 1,000 ml IV .BOLUS 05/26/21 04:42 Ondansetron [Zofran] 4 mg IVPUSH NOW STA 05/26/21 04:43 Ketorolac [Toradol] 30 mg IVPUSH ONETIME ONE
== END 2021-05-26 06:10 | disposition home or self-care (01) ==
LOC: CC.ED 04:14
DX: G43.019 Migraine without aura, intractable, without status migrainosus (principal); I10 Essential (primary) hypertension; Z88.5 Allergy status to narcotic agent; Z79.899 Other long term (current) drug therapy
CPT/HCPCS: 96374; 96375; 99283; J1885; J2405; J7030

== ENCOUNTER 2021-06-16 07:05 | Emergency (ER) | payer BC ==
[2021-06-16 07:17] VITALS: BP 151/93; PULSE 88
[2021-06-16] MEDS ORDERED: Ondansetron 4 MG Tab.DIS PO ONE (07:37)
[2021-06-16 08:03] LABS: CHLORIDE,CL 104 mEq/L (98-106); SODIUM,NA 142 mEq/L (136-145)
[2021-06-16 08:37] LABS: CORONAVIRUS COVID-19 NAA POSITIVE (NEGATIVE)
[2021-06-16] MEDS ORDERED: Iopamidol 755 Mg/ML 100 ML Bottle IVPUSH ONE (09:08)
== END 2021-06-16 10:00 | disposition home or self-care (01) ==
LOC: CC.ED 07:05
DX: U07.1 COVID-19 (principal); R74.8 Abnormal levels of other serum enzymes; R11.0 Nausea; I10 Essential (primary) hypertension; Z79.899 Other long term (current) drug therapy; Z88.5 Allergy status to narcotic agent
CPT/HCPCS: 0240U; 36415; 74177; 80053; 81003; 83690; 83735; 85025; 86140; 99284; A9270; Q9967

== ENCOUNTER 2021-07-21 20:23 | Emergency (ER) | payer BC ==
[2021-07-21 20:32] VITALS: BP 145/76; PULSE 95
[2021-07-21] MEDS ORDERED: Ondansetron 4 MG/2 ML SDV IVPUSH ONE (20:37)
[2021-07-21] MEDS ORDERED: Sodium Chloride 0.9% 250 ML IV SCH (20:45)
[2021-07-21] MEDS ORDERED: Lidocaine 2% Viscous Solution 15 ML UD ONE (21:08)
[2021-07-21] MEDS ORDERED: Aluminum Hydroxide/Magnesium Hydroxide/Simethicone Susp 30 ML Cup ONE (21:08)
[2021-07-21] MEDS ORDERED: GI Cocktail Oral Solution 30 ML PO ONE (21:24)
== END 2021-07-21 22:00 | disposition home or self-care (01) ==
LOC: CC.ED 20:23
DX: K52.9 Noninfective gastroenteritis and colitis, unspecified (principal); R11.2 Nausea with vomiting, unspecified; I10 Essential (primary) hypertension; Z88.5 Allergy status to narcotic agent; Z79.899 Other long term (current) drug therapy
CPT/HCPCS: 36415; 80053; 81001; 82150; 83690; 85025; 96374; 99284; 99284-25; A9270-GY; J2405; J7050

== ENCOUNTER 2022-06-01 13:35 | Emergency (ER) | payer BC ==
[2022-06-01 13:51] VITALS: BP 133/66; PULSE 88
[2022-06-01 14:55] LABS: RESPIRATORY SYNCYTIAL VIR NAA NEGATIVE (NEGATIVE)
[2022-06-01 14:56] LABS: CORONAVIRUS COVID-19 NAA POSITIVE (NEGATIVE)
== END 2022-06-01 15:30 | disposition home or self-care (01) ==
LOC: CC.ED 13:35
DX: U07.1 COVID-19 (principal); I10 Essential (primary) hypertension; Z88.5 Allergy status to narcotic agent; Z79.899 Other long term (current) drug therapy
CPT/HCPCS: 0241U; 71046; 99283; 99284